=== PATIENT | female | born 1945 | race Caucasian/White ===

== ENCOUNTER 2019-05-31 13:14 | Emergency (ER) | payer MEDICARE ==
[~2019-05-31] VITALS: Ht 172.7 cm; Wt 48.1 kg
--- NOTE | 2019-05-31 13:23 | NUR ---
GIANA RA 877 FROM HOME, PER CAREGIVER, "NAUSEA/VOMITING, STARTED ON NEW MEDICATION YESTERDAY, DONEZEPIL- WHEN SHE TOOK IT, SHE FELT NAUSEAOUS/VOMITTED. SAME THING HAPPENED TODAY". TO ER BED 9, HOOKED TO BP CUFF AND POX, CHANGED TO HOSP GOWN, WARM BLANKET PROVIDED. PATIENT AOx1 , BREATHING EVEN AND UNLABORED. AWAITING MD MCCUALEY.
--- NOTE | 2019-05-31 13:32 | NUR ---
DR DYER AT BEDSIDE
[2019-05-31] MEDS ORDERED: QUET25TA PO (13:40)
[2019-05-31] MEDS ORDERED: DONE10TA44 PO (13:40)
[2019-05-31] MEDS ORDERED: ONDANSETRON HCL/PF 4 MG/2 ML VIAL ONE (13:42)
[2019-05-31 13:48] LABS: BASOPHILS % (AUTO) 0.2 % (0.0-2.0); EOSINOPHILS % (AUTO) 0.6 % (0.0-6.0); HEMATOCRIT 39 % (33-45); HEMOGLOBIN 12.6 g/dL (11.5-14.8); LYMPHOCYTES # (AUTO) 0.7 /CMM (0.8-4.8); LYMPHOCYTES % (AUTO) 10.7 % (20.0-44.0); MEAN CORPUSCULAR HGB CONC 33 g/dl (31.0-36.0); MEAN CORPUSCULAR VOLUME 93 fL (82-100); MONOCYTES # (AUTO) 0.5 /CMM (0.1-1.30); NEUTROPHILS # (AUTO) 5.1 /CMM (1.8-8.9); NEUTROPHILS % (AUTO) 80.5 % (43.0-81.0); PLATELET COUNT (AUTO) 124 /CMM (150-450); RED BLOOD CELL COUNT(AUTO) 4.14 MIL/uL (4.0-5.2); WHITE BLOOD COUNT (AUTO) 6.4 K/uL (4.3-11.0)
[2019-05-31 13:53] LABS: CREATININE 0.6 mg/dL (0.6-1.3); POTASSIUM 3.8 mmol/L (3.5-5.1)
[2019-05-31 13:59] LABS: ALBUMIN 3.7 g/dL (3.4-5.0); BILIRUBIN,DIRECT 0.1 mg/dL (0.0-0.2); BILIRUBIN,TOTAL 0.5 mg/dL (0.2-1.0); TOTAL PROTEIN, SERUM 7.1 g/dL (6.4-8.2)
[2019-05-31] MEDS ORDERED: IV NS 0.9% 1,000 ML BAG IV ONE (14:00)
[2019-05-31] MEDS ORDERED: ONDANSETRON HCL/PF 4 MG/2 ML VIAL IVP ONE (14:00)
[2019-05-31 14:15] LABS: APPEARANCE,URINE Clear (CLEAR); BILIRUBIN,URINE Negative (NEGATIVE); BLOOD, URINE Negative Ery/uL (NEGATIVE); COLOR,URINE Yellow (YELLOW); KETONES,URINE Negative (NEGATIVE); LEUKOCYTE ESTERASE ,URINE Negative (NEGATIVE); NITRITE, URINE Negative (NEGATIVE); PH,URINE 8.5 (5.0-8.0); PROTEIN,URINE Trace mg/dl (NEGATIVE); UGLUCOSE Negative (NEGATIVE)
[2019-05-31 14:44] LABS: BACTERIA,URINE Few /HPF (None Seen); RBC,URINE 0-2 /HPF (0-2); SQUAMOUS EPITHELIAL CELL,UR Few /HPF (None Seen); WBC,URINE 0-2 /HPF (0-3)
--- NOTE | 2019-05-31 15:09 | NUR ---
IV removed. Catheter intact and site benign. Pressure and 4x4 applied to site. No bleeding noted. Patient discharged to home in stable condition. Written and verbal after care instructions given to caregiver. Caregiver verbalizes understanding of instruction. Caregiver: Chetna Parra [phone]
[2019-05-31 15:11] VITALS: BP 141/76
== END 2019-05-31 15:12 | disposition home or self-care (01) ==
LOC: ER 13:16
DX: R11.2 Nausea with vomiting, unspecified (principal); E86.0 Dehydration; T44.1X5A Adverse effect of other parasympathomimetics [cholinergics], initial encounter; Z79.899 Other long term (current) drug therapy; Y92.89 Other specified places as the place of occurrence of the external cause
CPT/HCPCS: 36415; 80048; 80076; 81001; 83690; 85025; 93005; 96361; 96374; 99284; J2405; J7030; 81000-TC

== ENCOUNTER 2020-03-25 17:53 | Inpatient (IN) | payer MEDICARE ==
[~2020-03-25] VITALS: Ht 162.6 cm; Wt 56.7 kg
[~2020-03-25 17:53] MED LIST: DONE10TA44 PO; QUET25TA PO
--- NOTE | 2020-03-25 19:37 | NUR ---
PAGED DR. LAZCANO'S EXCHANGE.
--- NOTE | 2020-03-25 19:42 | NUR ---
PATIENT'S CORONAVIRUS SWAB SAMPLE COLLECTED AND SENT TO THE LAB.
--- NOTE | 2020-03-25 19:46 | NUR ---
PAGED [facility].
--- NOTE | 2020-03-25 20:00 | NUR ---
ASSUMED CARE FOR PATIENT AT THIS TIME. PT BIBRA FROM HOME S/O FALL. PER REPORT, PT WAS ATTEMPTING TO SIT ON BED AND FELL. DENIES HEAD INJURY/LOC. PT AWAKE, CONFUSED. VSS. RESPIRATIONS EVEN AND UNLABORED. NO ACUTE DISTRESS NOTED AT THIS TIME. PLACED ON MONITOR, WILL CONTINUE TO MONITOR
[2020-03-25 20:11] LABS: BASOPHILS # (AUTO) 0.1 /CMM (0.0-0.2); BASOPHILS % (AUTO) 0.5 % (0.0-2.0); EOSINOPHILS % (AUTO) 0.6 % (0.0-6.0); HEMATOCRIT 36 % (33-45); HEMOGLOBIN 11.5 g/dL (11.5-14.8); LYMPHOCYTES # (AUTO) 0.8 /CMM (0.8-4.8); LYMPHOCYTES % (AUTO) 7.1 % (20.0-44.0); MEAN CORPUSCULAR HGB CONC 32 g/dl (31.0-36.0); MEAN CORPUSCULAR VOLUME 94 fL (82-100); MONOCYTES # (AUTO) 0.9 /CMM (0.1-1.30); MONOCYTES % (AUTO) 7.9 % (2.0-12.0); NEUTROPHILS # (AUTO) 9.7 /CMM (1.8-8.9); NEUTROPHILS % (AUTO) 83.9 % (43.0-81.0); PLATELET COUNT (AUTO) 143 /CMM (150-450); RED BLOOD CELL COUNT(AUTO) 3.83 MIL/uL (4.0-5.2); WHITE BLOOD COUNT (AUTO) 11.5 K/uL (4.3-11.0)
[2020-03-25 20:21] LABS: CREATININE 0.8 mg/dL (0.6-1.3)
--- NOTE | 2020-03-25 21:24 | NUR ---
CALL FROM LAB, RAPID COVID NEGATIVE.
[2020-03-25] MEDS ORDERED: ZOLPIDEM TARTRATE 5 MG TABLET PO PRN (21:30)
[2020-03-25] MEDS ORDERED: MAGNESIUM HYDROXIDE 30 ML UDC PO PRN (21:30)
[2020-03-25] MEDS ORDERED: Z GUARD REMEDY 2 OZ OINT TP PRN (21:30)
[2020-03-25] MEDS ORDERED: HYDROCODONE/APAP 5/325MG TABLET PO PRN (21:30)
[2020-03-25] MEDS ORDERED: MAG HYDROX/AL HYDROX/SIMETH 30 ML UDC PO PRN (21:30)
[2020-03-25] MEDS ORDERED: MORPHINE SULFATE INJ 2 MG/ML DISP.SYRIN IV PRN (21:30)
[2020-03-25] MEDS ORDERED: ONDANSETRON HCL/PF 4 MG/2 ML VIAL IVP PRN (21:30)
[2020-03-25] MEDS ORDERED: ACETAMINOPHEN 325 MG TABLET PO PRN (21:30)
[2020-03-25] MEDS ORDERED: OLANZAPINE 10 MG VIAL IM ONE ×2 (21:56→22:00)
[2020-03-25] MEDS: IV D5/0.45 NACL 1,000 ML IV PRN (23:26)
--- NOTE | 2020-03-25 23:30 | NUR ---
18g piv started on lfa w/ good blood draw. and pt ws astarted on ivf hydration as ordered. will cont to monitor ,
[2020-03-25] MEDS ORDERED: QUETIAPINE FUMARATE 25 MG TABLET ONE (23:49)
[2020-03-25] MEDS ORDERED: DONEPEZIL 5 MG TABLET ONE (23:49)
[2020-03-25] MEDS: QUETIAPINE FUMARATE 25 MG TABLET PO SCH ×2 (23:59)
[2020-03-26] MEDS: DONEPEZIL 5 MG TABLET PO SCH
--- NOTE | 2020-03-26 00:02 | NUR ---
spoke to Shruti Goldsmith TANKER SERVICE ATTENDANT, regarding pt's diet. per Shruti, it's ok to administer the medications due.
[2020-03-26 03:43] LABS: BASOPHILS % (AUTO) 0.3 % (0.0-2.0); EOSINOPHILS % (AUTO) 0.1 % (0.0-6.0); HEMATOCRIT 38 % (33-45); HEMOGLOBIN 12.2 g/dL (11.5-14.8); LYMPHOCYTES # (AUTO) 0.8 /CMM (0.8-4.8); LYMPHOCYTES % (AUTO) 9.2 % (20.0-44.0); MEAN CORPUSCULAR HGB CONC 33 g/dl (31.0-36.0); MEAN CORPUSCULAR VOLUME 93 fL (82-100); MONOCYTES # (AUTO) 0.8 /CMM (0.1-1.30); MONOCYTES % (AUTO) 9.2 % (2.0-12.0); NEUTROPHILS # (AUTO) 6.7 /CMM (1.8-8.9); NEUTROPHILS % (AUTO) 81.2 % (43.0-81.0); PLATELET COUNT (AUTO) 143 /CMM (150-450); RED BLOOD CELL COUNT(AUTO) 4.04 MIL/uL (4.0-5.2); WHITE BLOOD COUNT (AUTO) 8.2 K/uL (4.3-11.0)
[2020-03-26 03:58] LABS: ALBUMIN 3.7 g/dL (3.4-5.0); BILIRUBIN,TOTAL 0.6 mg/dL (0.2-1.0); CALCIUM, SERUM 8.8 mg/dL (8.5-10.1); CREATININE 0.9 mg/dL (0.6-1.3); MAGNESIUM 2.1 mg/dL (1.8-2.4); PHOSPHORUS 4.3 mg/dL (2.5-4.9); POTASSIUM 4.1 mmol/L (3.5-5.1); TOTAL PROTEIN, SERUM 7.1 g/dL (6.4-8.2)
--- NOTE | 2020-03-26 07:36 | NUR ---
REPORT GIVEN TO ASHLYN EDMOND FOR LEÓN
--- NOTE | 2020-03-26 08:42 | NUR ---
PATIENT IN BED ASLEEP. EASILY AROUSABLE BY VOICE. HOOKED TO MONITOR. VSS. WILL CONTINUE TO MONITOR
--- NOTE | 2020-03-26 09:26 | NUR ---
BREAKFAST TRAY PROVIDED. TOLERATING PO WELL.
[2020-03-26 10:06] LABS: IRON, SERUM 56 ug/dl (50-175); TOTAL IRON BINDING CAPACITY 323 ug/dl (250-450)
--- NOTE | 2020-03-26 10:16 | NUR ---
EPISODE OF BOWEL MOVEMENT NOTED, SMELLY BROWN LOOSE STOOL NOTED. LARGE AMOUNT. CLEANED PATIENT. KEPT CLEAN AND DRY.
[2020-03-26 10:21] LABS: FERRITIN 83 ng/mL (8-388); THYROID STIMULATING HORMONE 1.819 uIU/mL (0.358-3.74)
--- NOTE | 2020-03-26 12:42 | NUR ---
LUNCH TRAY PROVIDED. TOLERATING PO WELL.
--- NOTE | 2020-03-26 13:42 | NUR ---
EPISODE OF BOWEL MOVEMENT NOTED, SMELLY BROWN LOOSE STOOL NOTED. LARGE AMOUNT. CLEANED PATIENT. KEPT CLEAN AND DRY.
--- NOTE | 2020-03-26 14:29 | NUR ---
Patient seen and examined by Dr. Lyles.
--- NOTE | 2020-03-26 16:15 | NUR ---
EPISODE OF BOWEL MOVEMENT NOTED, SMELLY BROWN LOOSE STOOL NOTED. LARGE AMOUNT. CLEANED PATIENT. KEPT CLEAN AND DRY.
--- NOTE | 2020-03-26 19:42 | NUR ---
PT RESTING COMFORTABLY IN BED. VITAL SIGNS STABLE. WILL CONTINUE TO MONITOR
[2020-03-26] MEDS: QUETIAPINE FUMARATE 25 MG TABLET PO SCH (22:03)
--- NOTE | 2020-03-27 04:06 | NUR ---
PT CLEANED, CHANGED, AND REPOSITIONED. RESTING COMFORTABLY IN BED. VITAL SIGNS STABLE. NO ACUTE DISTRESS NOTED AT THIS TIME. STILL ON MONITOR, WILL CONTINUE TO MONITOR
[2020-03-27] MEDS: IV D5/0.45 NACL 1,000 ML IV PRN (06:36)
[2020-03-27] MEDS ORDERED: BACITRACIN 50000 UNITS/VIAL ONE (07:13)
[2020-03-27] MEDS ORDERED: BUPIVACAINE 0.5 % PF 150 MG/30 ML VIAL ONE (07:13)
--- NOTE | 2020-03-27 07:43 | NUR ---
NARESH, SURGERY UPDATED WITH PT. AWAITING FOR CONSENT.
--- NOTE | 2020-03-27 08:30 | NUR ---
consent obtained from pts for surgery vinicio villa verified with kimberly wong via phone.
--- NOTE | 2020-03-27 09:45 | NUR ---
pt picked up by cindy wong for surgery with marco jones
--- NOTE | 2020-03-27 10:57 | NUR ---
pt will go to 327-2 after surgery
[2020-03-27] MEDS ORDERED: VANCOMYCIN 1 GM VIAL ONE (11:08)
[2020-03-27 11:40] VITALS: BP 118/81
--- NOTE | 2020-03-27 12:00 | NUR ---
RN NOTE Patient arrived A/ox1, confused, showing no signs of acute distress or SOB, saturating 100% on 3L NC. IV line in the left wrist #20g is clean and intact flushing well. Patient denies any pain at this time. Left hip surgical incision present. VS stable. Patient is shivering, oral temp 98.0, bear hugger in place to keep patient warm. Bed is in lowest position, side rail x2, in upright position, call light is within reach, fall safety and aspiration precautions enforced. Will continue with plan of care.
[2020-03-27] MEDS ORDERED: HYDROCODONE/APAP 10/325MG TABLET PO PRN (12:30)
[2020-03-27] MEDS ORDERED: MORPHINE SULFATE INJ 2 MG/ML DISP.SYRIN IV PRN (12:30)
--- NOTE | 2020-03-27 16:12 | NUR ---
Tele monitor ST 100s with PACs
[2020-03-27] MEDS: IV D5/0.45 NACL W/20 MEQ KCL 1L IV PRN ×2 (16:39)
[2020-03-27] MEDS: ENOXAPARIN SODIUM 40 MG/0.4 ML DISP.SYRIN SQ SCH (17:01)
[2020-03-27] MEDS: ANCEF 1 GM/50 ML D5W IV SCH ×2 (17:41)
--- NOTE | 2020-03-27 18:43 | NUR ---
RN CLOSING NOTE Patient is resting in bed, A/o x1, with periods of confusion, showing no signs of acute distress or SOB, saturating 100% on 3L NC. IV line in the left wrist #20g is clean and intact running D51/4 + potassium 20meq running @ 75mls/hr. Patient turned and repositioned, bed bath given. Surgical incision is clean and dry. Will endorse to plant operator/shift supervisor for LEÓN.
--- NOTE | 2020-03-27 19:30 | NUR ---
TONG SETTER OPENING NOTE Patient is resting in bed, awake, alert and oriented x1, with periods of confusion noted. Reorientation provided. No s/sx of acute respiratory distress or SOB, saturating 99% on 3L NC. IV line in the left wrist #20g is clean and intact running D51/4 + potassium 20meq running @ 75mls/hr. No manifestations of pain or discomfort at this time. Patient turned and repositioned, Surgical incision is clean and dry. Will continue to monitor.
[2020-03-27 20:00] VITALS: BP 148/90
[2020-03-27] MEDS: DONEPEZIL 5 MG TABLET PO SCH (21:29)
[2020-03-27] MEDS: QUETIAPINE FUMARATE 25 MG TABLET PO SCH (21:29)
[2020-03-27 23:00] VITALS: BP 117/60
[2020-03-28] MEDS: ANCEF 1 GM/50 ML D5W IV SCH ×4 (01:58→09:23)
[2020-03-28 06:50] LABS: BASOPHILS % (AUTO) 0.5 % (0.0-2.0); HEMATOCRIT 24 % (33-45); HEMOGLOBIN 7.9 g/dL (11.5-14.8); LYMPHOCYTES # (AUTO) 0.6 /CMM (0.8-4.8); LYMPHOCYTES % (AUTO) 6.6 % (20.0-44.0); MEAN CORPUSCULAR HGB CONC 33 g/dl (31.0-36.0); MEAN CORPUSCULAR VOLUME 95 fL (82-100); MONOCYTES # (AUTO) 1.2 /CMM (0.1-1.30); MONOCYTES % (AUTO) 13.1 % (2.0-12.0); NEUTROPHILS # (AUTO) 7.5 /CMM (1.8-8.9); NEUTROPHILS % (AUTO) 79.8 % (43.0-81.0); PLATELET COUNT (AUTO) 119 /CMM (150-450); RED BLOOD CELL COUNT(AUTO) 2.51 MIL/uL (4.0-5.2); WHITE BLOOD COUNT (AUTO) 9.4 K/uL (4.3-11.0)
--- NOTE | 2020-03-28 07:01 | NUR ---
RN CLOSING NOTE Patient is bed asleep, arouses easily. A/o x1-2, with periods of confusion, showing no signs of acute distress or SOB, saturating 100% on 3L NC. IV line in the left wrist #20g is clean and intact running D51/4 + potassium 20meq running @75mls/hr. Patient turned and repositioned. Surgical incision is clean and dry. Will endorse to day shift for LEÓN.
[2020-03-28 07:13] LABS: CALCIUM, SERUM 8.3 mg/dL (8.5-10.1); CREATININE 0.9 mg/dL (0.6-1.3); MAGNESIUM 2.6 mg/dL (1.8-2.4); PHOSPHORUS 3.6 mg/dL (2.5-4.9); POTASSIUM 4.2 mmol/L (3.5-5.1)
[2020-03-28] MEDS: IV D5/0.45 NACL W/20 MEQ KCL 1L IV PRN ×4 (07:22→22:49)
--- NOTE | 2020-03-28 07:30 | NUR ---
PT RECEIVED RESTING COMFORTABLY IN BED WITH EYES CLOSED. NO S/S OR C/O PAIN OR DISTRESS NOTED. SIDE RAILS UP X2, CALL LIGHT LEFT WITHIN REACH. WILL CONTINUE PLAN OF CARE.
[2020-03-28 08:00] VITALS: BP 112/84
[2020-03-28 10:00] VITALS: BP 112/84
[2020-03-28 12:00] VITALS: BP 149/74
[2020-03-28 16:00] VITALS: BP 150/89
[2020-03-28] MEDS: ENOXAPARIN SODIUM 40 MG/0.4 ML DISP.SYRIN SQ SCH (16:04)
--- NOTE | 2020-03-28 19:45 | NUR ---
RN OPENING NOTES RECEIVED PT IN BED. PT IS A/O X 1, PT IS CONFUSED AND BEHAVES INAPPROPRIATELY, MAKING ABNORMAL NOISES SECONDARY TO POSSIBLE PSYCH ISSUES. PT IS COOPERATIVE. PT IS ON 4L OF O2 VIA NASAL CANNULA. TOLERATING WELL SATURATION 95% NO RESP DISTRESS OR SOB NOTED BREATHING IS EVEN AND UNLABORED. SAFETY MEASURES IN PLACE, HOB ELEVATED TOLERATED. SIDE RAILS UP X2. BED LOCKED IN LOWEST POSITION CALL LIGHT WITHIN REACH WILL CONTINUE TO MONITOR
--- NOTE | 2020-03-28 21:12 | NUR ---
CHANGE OF SHIFT REPORT PT RESTING COMFORTABLY IN BED. NO S/S OR C/O PAIN OR DISTRESS NOTED. SIDE RAILS UP X2, CALL LIGHT LEFT WITHIN REACH. PT KEPT CLEAN, DRY, AND COMFORTABLE. NO SIGNIFICANT CHANGES SINCE PREVIOUS SHIFT. REPORT GIVEN TO SHU GOLDBERG.
[2020-03-28] MEDS: DONEPEZIL 5 MG TABLET PO SCH (22:36)
[2020-03-28] MEDS: QUETIAPINE FUMARATE 25 MG TABLET PO SCH (22:36)
--- NOTE | 2020-03-28 23:00 | NUR ---
PT IV SITE IS LEAKING, CATHETER REMOVED AND INTACT. NO S/S OF BLEEDING NOTED. NEW IV INSERTED LEFT FOREARM #20 PATENT GOOD BLOOD RETURN.
[2020-03-29] VITALS (7 sets, daily range): BP systolic 106–145; BP diastolic 46–95
[2020-03-29 07:02] LABS: BASOPHILS % (AUTO) 0.4 % (0.0-2.0); EOSINOPHILS % (AUTO) 0.1 % (0.0-6.0); HEMATOCRIT 22 % (33-45); HEMOGLOBIN 7.2 g/dL (11.5-14.8); LYMPHOCYTES # (AUTO) 0.6 /CMM (0.8-4.8); LYMPHOCYTES % (AUTO) 6.9 % (20.0-44.0); MEAN CORPUSCULAR HGB CONC 32 g/dl (31.0-36.0); MEAN CORPUSCULAR VOLUME 96 fL (82-100); MONOCYTES # (AUTO) 0.9 /CMM (0.1-1.30); MONOCYTES % (AUTO) 10.7 % (2.0-12.0); NEUTROPHILS # (AUTO) 7.2 /CMM (1.8-8.9); NEUTROPHILS % (AUTO) 81.9 % (43.0-81.0); PLATELET COUNT (AUTO) 108 /CMM (150-450); RED BLOOD CELL COUNT(AUTO) 2.31 MIL/uL (4.0-5.2); WHITE BLOOD COUNT (AUTO) 8.8 K/uL (4.3-11.0)
[2020-03-29 07:40] LABS: CALCIUM, SERUM 8.5 mg/dL (8.5-10.1); CREATININE 0.7 mg/dL (0.6-1.3); MAGNESIUM 2.2 mg/dL (1.8-2.4); PHOSPHORUS 2.6 mg/dL (2.5-4.9); POTASSIUM 4.2 mmol/L (3.5-5.1)
--- NOTE | 2020-03-29 08:10 | NUR ---
MS RN OPENING NOTES PATIENT IN BED, AWAKE, CONFUSED. PATIENT ON OXYGEN THERAPY AT 4 LMP VIA NASAL CANULA; BREATHING EVEN AND UNLABORED. NO PAIN COMPLAINT AT THIS TIME. SAFETY PRECAUTIONS IN PLACE; BED IN LOW POSITION AND LOCKED, RAILS UP X2, CALL LIGHT WITHIN REACH. WILL ENDORSE TO QUILL LAYER NURSE.
--- NOTE | 2020-03-29 08:31 | NUR ---
RN CLOSING NOTES NO SIGNIFICANT CHANGES, PT RESTED WELL THROUGHOUT THE NIGHT. PT IS CURRENTLY RECEIVING BREAKFAST WITH BEAUTY CULTURIST APPRENTICE AT BEDSIDE. STILL ON NASAL CANNULA TOLERATED ON 4L OF O2, PT SATURATING >96% NO SOB NOTED NO RESP DISTRESS NOTED. BREATHING IS EVEN AND UNLABORED. PT STILL ON IVF, NO S/S OF INFILTRATION NOTED AT THIS TIME. SAFETY MEASURES IN PLACE. HOB ELEVATED. SIDE RAILS UP X2. BED LOCKED IN LOWEST POSITION. CALL LIGHT WITHIN REACH. ENDORSED TO AM NURSE FOR CONTINUATION OF CARE.
[2020-03-29] MEDS: IV D5/0.45 NACL 1,000 ML IV PRN (14:27)
[2020-03-29] MEDS: ENOXAPARIN SODIUM 40 MG/0.4 ML DISP.SYRIN SQ SCH (16:33)
--- NOTE | 2020-03-29 16:33 | NUR ---
DIVING INSTRUCTOR NOTES PATIENT HAS LOW HGB OF 7.2; AWARE. 1700 LOVENOX NON-ADMINISTERED
--- NOTE | 2020-03-29 18:34 | NUR ---
MS RN NOTES PATIENT PULLED OUT HER IV LINE. REFUSES TO BE TOUCHED OR RE-INSERT A NEW LINE. AWARE.
--- NOTE | 2020-03-29 18:50 | NUR ---
MS RN CLOSING NOTES PATIENT REMAINS IN BED, AWAKE, CONFUSED. PATIENT ON OXYGEN THERAPY AT 4 LPM VIA NASAL CANULA; BREATHING EVEN AND UNLABORED. NO PAIN COMPLAINT THROUGHOUT SHIFT. PATIENT PULLED HER IV LINE AND REFUSES REINSERTION; MD AWARE. MARTE CATH IN PLACE WITH A DAILY OUTPUT OF 330 MLS. ALL NEEDS ATTENDED THROUGHOUT THE DAY. SAFETY PRECAUTIONS IN PLACE; BED IN LOW POSITION AND LOCKED, RAILS UP X2, CALL LIGHT WITHIN REACH. WILL ENDORSE TO DRUM FILLER NURSE.
--- NOTE | 2020-03-29 19:23 | NUR ---
MS RN OPENING NOTES RECEIVED PT INTERMITTENTLY SLEEPING IN BED. PT IS A/O X 1, CONFUSED AND BEHAVES INAPPROPRIATELY, MAKING ABNORMAL NOISES SECONDARY TO POSSIBLE PSYCH ISSUES. PT IS COOPERATIVE BUT REFUSES ADL CARE AT TIMES. PT IS ON 3-4L OF O2 VIA NASAL CANNULA. TOLERATING WELL SATURATION 94% NO RESP DISTRESS OR SOB NOTED BREATHING IS EVEN AND UNLABORED. SAFETY MEASURES IN PLACE, HOB ELEVATED TOLERATED. SIDE RAILS UP X2. BED LOCKED IN LOWEST POSITION. BED ALARM ON FOR SAFETY. CALL LIGHT WITHIN REACH WILL CONTINUE TO MONITOR
--- NOTE | 2020-03-29 20:23 | NUR ---
MS RN NOTE PATIENT DIES NOT HAVE IV ACCESS, PER AM RN REPORT, PATIENT REMOVED HER IV CATH & REFUSED TO HAVE REINSERTION IF CATH DONE. DR. SOLIS WAS MADE AWARE BY AM RN & PER , OKAY IF PATIENT REFUSES IV ACTH INSERTED. WILL CONTINUE TO MONITOR.
[2020-03-29] MEDS: QUETIAPINE FUMARATE 25 MG TABLET PO SCH (22:12)
[2020-03-29] MEDS: DONEPEZIL 5 MG TABLET PO SCH (22:12)
--- NOTE | 2020-03-30 07:43 | NUR ---
RN OPEN NOTES PATIENT IS A/O X 1 WITH NO SIGNS OF DISTRESS IN ROOM AIR. PER BOX SPRING MAKER, PATIENT REFUSES IV AND DR. SOLIS IS AWARE. NO COMPLAIN OF PAIN AT THIS TIME.MARTE CATHETER INTACT. SAFETY MEASURES ARE APPLIED, BED IS IN LOW POSITION SIDE RAILS UP X 2. CALL LIGHT WITHIN REACH. WILL CONTINUE TO MONITOR.
[2020-03-30 09:01] LABS: BASOPHILS % (AUTO) 0.2 % (0.0-2.0); EOSINOPHILS % (AUTO) 0.4 % (0.0-6.0); LYMPHOCYTES # (AUTO) 0.7 /CMM (0.8-4.8); LYMPHOCYTES % (AUTO) 10.1 % (20.0-44.0); MEAN CORPUSCULAR HGB CONC 33 g/dl (31.0-36.0); MEAN CORPUSCULAR VOLUME 93 fL (82-100); MONOCYTES # (AUTO) 0.8 /CMM (0.1-1.30); MONOCYTES % (AUTO) 11.1 % (2.0-12.0); NEUTROPHILS # (AUTO) 5.3 /CMM (1.8-8.9); NEUTROPHILS % (AUTO) 78.2 % (43.0-81.0); PLATELET COUNT (AUTO) 151 /CMM (150-450); RED BLOOD CELL COUNT(AUTO) 2.16 MIL/uL (4.0-5.2); WHITE BLOOD COUNT (AUTO) 6.8 K/uL (4.3-11.0)
[2020-03-30 09:41] LABS: HEMOGLOBIN 6.7 g/dL (11.5-14.8)
[2020-03-30 09:42] LABS: HEMATOCRIT 20 % (33-45)
[2020-03-30 10:06] LABS: ALBUMIN 2.4 g/dL (3.4-5.0); BILIRUBIN,TOTAL 0.7 mg/dL (0.2-1.0); CREATININE 0.7 mg/dL (0.6-1.3); PHOSPHORUS 2.7 mg/dL (2.5-4.9); POTASSIUM 3.8 mmol/L (3.5-5.1); TOTAL PROTEIN, SERUM 5.7 g/dL (6.4-8.2)
[2020-03-30 14:01] LABS: EOSINOPHILS % (MANUAL) 1 % (0-4); LYMPHOCYTES % (MANUAL) 11 % (16-48); MONOCYTES % (MANUAL) 9 % (0-11.0); NEUTROPHILS % (MANUAL) 79 (42-76)
[2020-03-30 15:49] VITALS: BP 114/60
--- NOTE | 2020-03-30 15:50 | NUR ---
BLOOD TRANSFUSION WAS VERIFIED WITH SECOND RN INITIAL VITAL SIGNS 114/60 P 71 TEMP 98 F SPO2 NASAL CANNULA 94%. STARTED BLOOD TRANSFUSION.
[2020-03-30 16:00] VITALS: BP 125/55
[2020-03-30 16:14] VITALS: BP 125/55
[2020-03-30] MEDS: ENOXAPARIN SODIUM 40 MG/0.4 ML DISP.SYRIN SQ SCH (16:35)
--- NOTE | 2020-03-30 16:36 | NUR ---
HELD LOVENOX PATIENT LOW HEMOGLOBIN 6.5 HCT 20. CURRENTLY ON BLOOD TRANSFUSION.
[2020-03-30 16:44] VITALS: BP 135/50
[2020-03-30 17:44] VITALS: BP 143/54
--- NOTE | 2020-03-30 17:54 | NUR ---
BLOOD TRANSFUSION ENDED, VITALS WITHIN NORMAL LIMIT, AFEBRILE. NO SIGNS OF DISTRESS.
--- NOTE | 2020-03-30 19:45 | NUR ---
MS RN OPENING NOTES RECEIVED PATIENT IN BED ALERT AND ORIENTED X 1 CONFUSED. BREATHING REGULAR AND UNLABORED ON OXYGEN AT 4L/MIN VIA NASAL CANNULA. RIGHT FOREARM G20 IV LINE INTACT AND PATENT, INFUSING WELL. NO S/S OF PAIN/DISCOMFORT NOTED AT THIS TIME. BED LOW AND LOCKED ON SEMI FOWLERS POSITION. CALL LIGHT IN REACH. WILL CONTINUE TO MONITOR.
[2020-03-30 20:00] VITALS: BP 115/62
--- NOTE | 2020-03-30 20:01 | NUR ---
RN CLOSE NOTES PATIENT IS A/O X 1 WITH NO SIGNS OF DISTRESS IN ROOM AIR. IV R FA #20G INTACT RUNNING D5 1/2 NS AT 75 ML/HR. NO SIGNS OF PAIN AT THIS TIME. MARTE CATHETER INTACT. PATIENT KEPT CLEAN AND DRY. ALL NEEDS, CARE, TREATMENT,AND MEDICATIONS WERE ADMINISTERED ANTICIPATED PER ORDER. SAFETY MEASURES ARE APPLIED, BED IS IN LOW POSITION SIDE RAILS UP X 2. CALL LIGHT WITHIN REACH WILL ENDORSE TO THE STREET LIGHT REPAIRER NURSE.
[2020-03-30] MEDS: QUETIAPINE FUMARATE 25 MG TABLET PO SCH (21:53)
[2020-03-30] MEDS: DONEPEZIL 5 MG TABLET PO SCH (21:53)
[2020-03-31] MEDS: IV D5/0.45 NACL 1,000 ML IV PRN ×2 (05:15→19:53)
--- NOTE | 2020-03-31 06:45 | NUR ---
MS RN CLOSING NOTES PATIENT IN BED, ALERT AND ORIENTED X 1. AFEBRILE WITH NO S/S OF DISTRESS OBSERVED. WILL ENDORSE TO MORNING SHIFT FOR CONTINUITY OF CARE.
[2020-03-31 06:57] LABS: ALBUMIN 2.3 g/dL (3.4-5.0); BILIRUBIN,TOTAL 1.1 mg/dL (0.2-1.0); CALCIUM, SERUM 8.2 mg/dL (8.5-10.1); CREATININE 0.6 mg/dL (0.6-1.3); POTASSIUM 3.3 mmol/L (3.5-5.1); TOTAL PROTEIN, SERUM 5.1 g/dL (6.4-8.2)
[2020-03-31 07:44] LABS: BASOPHILS % (AUTO) 0.2 % (0.0-2.0); EOSINOPHILS % (AUTO) 2.3 % (0.0-6.0); HEMATOCRIT 24 % (33-45); LYMPHOCYTES # (AUTO) 0.7 /CMM (0.8-4.8); LYMPHOCYTES % (AUTO) 10.6 % (20.0-44.0); MEAN CORPUSCULAR HGB CONC 33 g/dl (31.0-36.0); MEAN CORPUSCULAR VOLUME 95 fL (82-100); MONOCYTES # (AUTO) 0.6 /CMM (0.1-1.30); MONOCYTES % (AUTO) 10.4 % (2.0-12.0); NEUTROPHILS # (AUTO) 4.7 /CMM (1.8-8.9); NEUTROPHILS % (AUTO) 76.5 % (43.0-81.0); PLATELET COUNT (AUTO) 150 /CMM (150-450); RED BLOOD CELL COUNT(AUTO) 2.55 MIL/uL (4.0-5.2); WHITE BLOOD COUNT (AUTO) 6.1 K/uL (4.3-11.0)
--- NOTE | 2020-03-31 07:51 | NUR ---
MS RN OPENING NOTES PATIENT IN BED, AWAKE, CONFUSED. PATIENT ON OXYGEN THERAPY AT 2 LMP VIA NASAL CANULA; BREATHING EVEN AND UNLABORED. NO PAIN COMPLAINT AT THIS TIME. R HAND IV ACCESS G # 22PRESENT AND INTACT. SAFETY PRECAUTIONS IN PLACE; BED IN LOW POSITION AND LOCKED, RAILS UP X2, CALL LIGHT WITHIN REACH. WILL CONTINUE TO MONITOR PATIENT.
[2020-03-31 08:00] VITALS: BP 117/70
[2020-03-31] MEDS ORDERED: POTASSIUM CHLORIDE 20 MEQ TAB.PRT.SR PO SCH (10:30)
[2020-03-31 16:00] VITALS: BP 107/56
[2020-03-31] MEDS: ENOXAPARIN SODIUM 40 MG/0.4 ML DISP.SYRIN SQ SCH (16:22)
--- NOTE | 2020-03-31 16:22 | NUR ---
MS RN NOTES 1700 ENOXAPARIN NOT ADMINISTERED. HGB LOW 8.0 AND R/O POSSIBLE GI BLEED.
--- NOTE | 2020-03-31 18:53 | NUR ---
MS RN CLOSING NOTES PATIENT REMAINS IN BED, AWAKE, CONFUSED. PATIENT ON OXYGEN THERAPY AT 2 LMP VIA NASAL CANULA; BREATHING EVEN AND UNLABORED. NO PAIN COMPLAINT DURING THE DAY. R HAND IV ACCESS G # 22 PRESENT AND INTACT. ALL NEEDS ATTENDED THROUGHOUT THE DAY. PATIENT CLEAN AND DRY. SAFETY PRECAUTIONS IN PLACE; BED IN LOW POSITION AND LOCKED, RAILS UP X2, CALL LIGHT WITHIN REACH. WILL ENDORSE TO WEB PRODUCTION DESIGNER NURSE.
--- NOTE | 2020-03-31 19:45 | NUR ---
MSRN CONFUSED, REORIENTED FREQ DOES NOT SEEM TO FOLLOW. PRESENT IVF INFUSING WELL. REPOSITIONED. LEFT HIP INCISIONS CLEAN DRY, INTACT OPEN TO AIR. DENIES ANY PAIN. KEPT COMFORTABLE.
[2020-03-31 21:38] VITALS: BP 125/51
[2020-03-31] MEDS: QUETIAPINE FUMARATE 25 MG TABLET PO SCH (21:56)
[2020-03-31] MEDS: DONEPEZIL 5 MG TABLET PO SCH (21:57)
--- NOTE | 2020-04-01 06:00 | NUR ---
MSRN REMAINS AWAKE SLEPT ONLY FOR FEW HOURS. PRESENT IVF CONTINUED.
[2020-04-01 08:00] VITALS: BP 133/73
--- NOTE | 2020-04-01 08:00 | NUR ---
ms rn received on bed, awake, very confused,not in any form of distress, s/p left hip surgery w/ syaples on, clean and dry, put dressing at this time, no s/s of pain ,all needs attended.
--- NOTE | 2020-04-01 09:00 | NUR ---
rn breakfast served,tolerated well. all needs attended.
--- NOTE | 2020-04-01 12:00 | NUR ---
ms rn on bed, no distress noted,patient will be discharge to [facility].
[2020-04-01] MEDS: IV D5/0.45 NACL 1,000 ML IV PRN (13:29)
[2020-04-01] MEDS ORDERED: Hydrocodone/Apap 10/325MG PO (14:52)
--- NOTE | 2020-04-01 17:30 | NUR ---
ms rn patient transferred to [facility], report given to Katie wong,all needs attended.
== END 2020-04-01 18:03 | DRG 480 ==
LOC: ER 18:03 → TRANSITION 03-26 02:28 → TELE 03-27 11:08 → MED 03-29 17:41
PROVIDERS: ADMIT Nurse Practitioner Acute Care; ATTEND Nurse Practitioner Acute Care
PROC: 0QS706Z Reposition Left Upper Femur with Intramedullary Internal Fixation Device, Open Approach (ICD-10-PCS; principal; 2020-03-27)
PROC: 30233N1 Transfusion of Nonautologous Red Blood Cells into Peripheral Vein, Percutaneous Approach (ICD-10-PCS; 2020-03-30)
DX: S72.012A Unspecified intracapsular fracture of left femur, initial encounter for closed fracture (principal); G93.41 Metabolic encephalopathy; N17.9 Acute kidney failure, unspecified; D62 Acute posthemorrhagic anemia; F02.80 Dementia in other diseases classified elsewhere, unspecified severity, without behavioral disturbance, psychotic disturbance, mood disturbance, and anxiety; G30.9 Alzheimer's disease, unspecified; Z79.899 Other long term (current) drug therapy; W06.XXXA Fall from bed, initial encounter; Y92.129 Unspecified place in nursing home as the place of occurrence of the external cause; E11.9 Type 2 diabetes mellitus without complications; F20.9 Schizophrenia, unspecified; F41.9 Anxiety disorder, unspecified; D72.829 Elevated white blood cell count, unspecified; I70.0 Atherosclerosis of aorta; F29 Unspecified psychosis not due to a substance or known physiological condition; Z20.828 Contact with and (suspected) exposure to other viral communicable diseases; E87.6 Hypokalemia
CPT/HCPCS: 36415; 71045-TC; 73020; 73502; 80048-TC; 80053-TC; 80061-TC; 82728-TC; 83540-TC; 83735-TC; 84100-TC; 84439-TC; 84443-TC; 84484-TC; 85025-TC; 85027-TC; 85730-TC; 86850-TC; 87081-TC; 92526; 92611-TC; 93307-TC; 97110-TC; 97112-TC; 97530-TC; C9803; G0378; J0690; J1650; J2405; J3370; J3480; J3490; J7030; J7050; J7060; J7120; P9016-BL

== ENCOUNTER 2020-05-25 08:39 | Inpatient (IN) | payer MEDICARE ==
[~2020-05-25] VITALS: Ht 170.2 cm; Wt 44.5 kg
[2020-05-25] VITALS (35 sets, daily range): BP systolic 45–139; BP diastolic 26–111
[~2020-05-25 08:39] MED LIST changes: +ETOMIDATE 2 MG/ML VIAL ONE; +Hydrocodone/Apap 10/325MG PO; +SUCCINYLCHOLINE CHLORIDE 20 MG/ML VIAL ONE
--- NOTE | 2020-05-25 08:45 | NUR ---
bibra60, from snf, c/o SOB 65% on non-rebreather mask @ 15L,BS 300. Patient awake, non-verbal, responsive to stimuli. Noted with shallow breathing, pulse ox shows 65% on the monitor.
[2020-05-25] MEDS ORDERED: PROPOFOL 100 ML ONE (08:53)
--- NOTE | 2020-05-25 08:55 | NUR ---
IV LINE ESTABLISHED, BLOOD DRAWN AND SENT TO LAB.
[2020-05-25] MEDS ORDERED: ACET-868 PO (08:58)
[2020-05-25] MEDS ORDERED: MULT-24 PO (08:58)
[2020-05-25] MEDS ORDERED: HYDR-3980 PO (08:58)
[2020-05-25] MEDS ORDERED: BLOO-668 IN (08:58)
[2020-05-25] MEDS ORDERED: AMIN30LI2 PO (08:58)
[2020-05-25] MEDS ORDERED: MAGN400O6 PO (08:58)
[2020-05-25] MEDS ORDERED: SENN-261 PO (08:58)
[2020-05-25] MEDS ORDERED: BISA10SU11 RC (08:58)
[2020-05-25] MEDS ORDERED: ASCO-352 PO (08:58)
[2020-05-25] MEDS ORDERED: FERR325T28 PO (08:58)
[2020-05-25] MEDS ORDERED: NA P133E RC (08:58)
[2020-05-25 08:59] LABS: BASOPHILS # (AUTO) 0.1 /CMM (0.0-0.2); BASOPHILS % (AUTO) 0.5 % (0.0-2.0); HEMATOCRIT 43 % (33-45); HEMOGLOBIN 13.4 g/dL (11.5-14.8); LYMPHOCYTES % (AUTO) 12.1 % (20.0-44.0); MEAN CORPUSCULAR HGB CONC 31 g/dl (31.0-36.0); MEAN CORPUSCULAR VOLUME 93 fL (82-100); MONOCYTES # (AUTO) 0.7 /CMM (0.1-1.30); MONOCYTES % (AUTO) 4.3 % (2.0-12.0); NEUTROPHILS # (AUTO) 14.1 /CMM (1.8-8.9); NEUTROPHILS % (AUTO) 83.1 % (43.0-81.0); PLATELET COUNT (AUTO) 229 /CMM (150-450); RED BLOOD CELL COUNT(AUTO) 4.58 MIL/uL (4.0-5.2); WHITE BLOOD COUNT (AUTO) 16.9 K/uL (4.3-11.0)
--- NOTE | 2020-05-25 08:59 | NUR ---
PATIENT PREP FOR INTUBATION, DR. VERAS AT BEDSIDE, RECEIVED VERBAL ORDER TO GIVE ETOMIDATE 20MG IV GIVEN X1 FOLLOWED BY SUCC 100MG IV X1.
[2020-05-25] MEDS ORDERED: PIPERACILLIN /TAZOBACTAM 3.375 G in IV D5W 50 ML IV ONE (09:00)
[2020-05-25] MEDS ORDERED: IV NS 0.9% 1,000 ML BAG IV ONE (09:00)
[2020-05-25] MEDS ORDERED: PROPOFOL 100 ML IV PRN (09:00)
--- NOTE | 2020-05-25 09:00 | NUR ---
PATIENT INTUBATED, ET TUBE SIZE IS 7.5, WITH 22CM ON THE LIP. + COLOR CHANGE, BILATERAL CHEST RISE. OG TUBE INSERTED.
--- NOTE | 2020-05-25 09:10 | NUR ---
MARTE CATHETER FR 16 INSERTED VIA STERILE TECHNIQUE. NO URINE OUTPUT AT THIS TIME.
--- NOTE | 2020-05-25 09:11 | NUR ---
MOVE SHEET SUBMITTED AND CALLED FOR ICU BED.
[2020-05-25 09:21] LABS: CALCIUM, SERUM 9.4 mg/dL (8.5-10.1); CARBON DIOXIDE 24 mmol/L (21-32); CHLORIDE 105 mmol/L (98-107); GLUCOSE 288 mg/dL (74-106); POTASSIUM 3.3 mmol/L (3.5-5.1); SODIUM SERUM 144 mmol/L (136-145); UREA NITROGEN, BLOOD 15 mg/dL (7-18)
[2020-05-25] MEDS: VANCOMYCIN 1 GM in IV D5W 250 ML IV ONE ×2 (09:22→09:45)
[2020-05-25 09:29] LABS: ALANINE AMINOTRANSFERASE 40 U/L (12-78); ALBUMIN 3.3 g/dL (3.4-5.0); ALKALINE PHOSPHATASE 236 U/L (46-116); ASPARTATE AMINOTRANSFERASE 70 U/L (15-37); BILIRUBIN,DIRECT 0.3 mg/dL (0.0-0.2); BILIRUBIN,TOTAL 0.9 mg/dL (0.2-1.0); TOTAL PROTEIN, SERUM 7.2 g/dL (6.4-8.2)
[2020-05-25] MEDS ORDERED: SUCCINYLCHOLINE CHLORIDE 20 MG/ML VIAL IV ONE (09:30)
[2020-05-25] MEDS ORDERED: NOREPINEPHRINE 8 MG in IV NS 0.9% 242 ML IV PRN ×2 (10:00→14:30)
[2020-05-25 10:50] LABS: ABG BASE EXCESS -10.4 mmol/L; ABG OXYGEN SATURATION 73.1 % (92.0-98.5); ABG PCO2 50.8 mmHg (35.0-45.0); ABG PO2 48.9 mmHg (75.0-100.0); AaDO2 613.3 mmHg; COHb 0.1 % (0.5-1.5); MetHb 0.4 % (0.0-1.5); O2Hb 72.7 % (94.0-97.0); SITE, ABG Right Radial; VENT MODE, BG AC 16 550 100% +0
--- NOTE | 2020-05-25 10:52 | NUR ---
PATIENT RESTING IN BED. PROPOFOL AND NOREPI ARE TITRATED PER EFFECT.
--- NOTE | 2020-05-25 10:53 | NUR ---
[facility] CALLED GAMEMASTER PAGED.
--- NOTE | 2020-05-25 11:00 | NUR ---
PATIENT STILL FIGHTING THE VENT, PROPOFOL TURNED OFF AT THIS TIME D/T LOW BP. LEVOPHED TITRATED PER PROTOCOL. SOFT WRIST RESTRAINTS IN PLACED KEEPING THE PATIENT FROM PULLING OUT THE TUBE.
[2020-05-25] MEDS ORDERED: IV NS 0.9% 1,000 ML IV ONE ×3 (11:30→16:45)
--- NOTE | 2020-05-25 11:30 | NUR ---
BP CUFF MOVED TO LEFT THIGH.
--- NOTE | 2020-05-25 11:40 | NUR ---
IV NS 1L STARTED END TIME: 1240 (UNABLE TO SIGN FROM EMAR)
--- NOTE | 2020-05-25 11:52 | NUR ---
LAB CALLED LACTIC ACID 7.7
[2020-05-25] MEDS ORDERED: ACETAMINOPHEN 650 MG/20.3 ML UDC NG PRN (12:00)
[2020-05-25 12:13] LABS: BILIRUBIN,URINE NEGATIVE (NEGATIVE); COLOR,URINE YELLOW (YELLOW); LEUKOCYTE ESTERASE ,URINE NEGATIVE (NEGATIVE); NITRITE, URINE NEGATIVE (NEGATIVE); PH,URINE 5.5 (5.0-8.0); PROTEIN,URINE 30 mg/dl (NEGATIVE); UGLUCOSE 500 MG/DL mg/dL (NEGATIVE)
[2020-05-25 12:18] LABS: BACTERIA,URINE Rare /HPF (None Seen); RBC,URINE 0-2 /HPF (0-2); SQUAMOUS EPITHELIAL CELL,UR Rare /HPF (None Seen); WBC,URINE 0-2 /HPF (0-3)
--- NOTE | 2020-05-25 12:24 | NUR ---
levophed and propofol, titrate to effect.
[2020-05-25] MEDS ORDERED: POTASSIUM CHLORIDE 20 MEQ POWDER PACKET NG ONE (13:00)
[2020-05-25] MEDS ORDERED: DEXTROSE 50%-WATER 50 ML DISP.SYRIN IV PRN (13:00)
[2020-05-25] MEDS ORDERED: POTASSIUM CL. PREMIX PERIPHER. 50 ML IV ONE (13:00)
[2020-05-25] MEDS ORDERED: SODIUM BICARBONATE SYR 50 MEQ/50 ML DISP.SYRIN IV ONE ×2 (13:00→16:30)
--- NOTE | 2020-05-25 14:03 | NUR ---
Report given to ASHLYN Walsh (icu).
--- NOTE | 2020-05-25 14:32 | NUR ---
Patient transferred to room 261 via acls protocol. No distress noted. Needs attended. Endorsed to Jillian GOLDBERG. Patient was seen and evaluated by Dr. Zamorano prior to transfer to ICU.
[2020-05-25] MEDS ORDERED: DIGOXIN INJ 0.5 MG/2 ML AMPUL IV ONE ×2 (15:00→18:30)
[2020-05-25 15:48] LABS: ABG BASE EXCESS -13.5 mmol/L; ABG OXYGEN SATURATION 61.7 % (92.0-98.5); ABG PCO2 55.2 mmHg (35.0-45.0); ABG PH 7.093 (7.350-7.450); ABG PO2 40.8 mmHg (75.0-100.0); COHb 0.5 % (0.5-1.5); MetHb 0.1 % (0.0-1.5); O2Hb 61.3 % (94.0-97.0); PEEP,BG 5 cm H2O; SITE, ABG Right Brachial; VT, ABG 550 mL
[2020-05-25] MEDS: PROPOFOL 100 ML IV PRN (15:51)
[2020-05-25] MEDS ORDERED: IV NS 0.9% 500 ML IV ONE (16:30)
[2020-05-25] MEDS: ENOXAPARIN SODIUM 30 MG/0.3 ML DISP.SYRIN SQ SCH (16:32)
[2020-05-25] MEDS ORDERED: VASOPRESSIN INJ 40 UNIT in IV NS 0.9% 38 ML IV PRN (17:30)
--- NOTE | 2020-05-25 17:49 | NUR ---
Non admin Klor Con. Was given in ER already
[2020-05-25] MEDS ORDERED: MEROPENEM 1 G in IV NS 0.9% 100 ML IV ONE (18:00)
[2020-05-25] MEDS: PHENYLEPHRINE 50 MG in IV NS 0.9% 245 ML IV PRN ×2 (18:01→21:23)
[2020-05-25] MEDS: BLOOD SUGAR DIAGNOSTIC 1 EACH STRIP IN SCH (18:09)
[2020-05-25] MEDS: INSULIN REGULAR, HUMAN 100 UNIT/ML 3 ML VIAL SQ PRN (18:10)
[2020-05-25] MEDS: NOREPINEPHRINE 32 MG in IV NS 0.9% 218 ML IV PRN (19:06)
[2020-05-25] MEDS: Sodium Bicarbonate 150 MEQ in IV D5W 1,000 ML IV SCH (19:06)
--- NOTE | 2020-05-25 19:45 | NUR ---
RN OPENING NOTES RECEIVED PT IN BED. NON VERBAL, PT IS ABLE TO OPEN EYES. ORALLY INTUBATED. .08/24 AT LIP. PT VENT SETTINGS AC 28 TV 550 FIO2 100% PEEP OF 5. PT O2 SATURATION IS 69-70. BASELINE TO PT, DOOR FRAMER AWARE. PT IS PCR PENDING FOR COVID. R/O PRECAUTIONS IN PLACE. ON AUTOMATION MECHANIC PT HAS UNCONTROLLED AFIB, BASELINE TO PT HR AT THIS TIME IS 105-120S. CHARGE NURSE MADE AWARE OF PT CONDITION. WILL CONT TO CLOSELY MONITOR. PT HAS MARTE CATH, DRAINING VIA GRAVITY. PT HAS SUBCLAVIAN TLC PICC AND LEFT FA AND RIGHT HAND IV, ALL FLUSHED ASEPTICALLY. PT IS ON NA BICARB D5W IVF @75ML/HR. SUZETTE @ 3MCG/KG/HR, LEVO @ 0.4 MCG/KG/HR AND DIPRIVAN AT 10MCG/KG/HR. PT HAS SOFT JOSE ALEJANDRO WRIST RESTRAINTS ON. SKIN CHECKED CIRCULATION CHECKED. SAFETY MEASURES IN PLACE. SIDE RAILS UP X2, BED LOCKED IN LOWEST POSITION WITH BED ALARM ON. PT UNABLE TO USE CALL LIGHT DUE TO COGNITIVE STATUS. WILL CONT TO CLOSELY MONITOR.
--- NOTE | 2020-05-25 20:00 | NUR ---
CHARGE SPOKE WITH , UPDATED CODE STATUS FOR PT IS DNR. WILL CONT TO MONITOR.
[2020-05-25] MEDS: VANCOMYCIN 500 MG in IV D5W 100 ML IV SCH (21:16)
[2020-05-26] VITALS (95 sets, daily range): BP systolic 87–138; BP diastolic 22–93
[2020-05-26] MEDS: BLOOD SUGAR DIAGNOSTIC 1 EACH STRIP IN SCH ×5 (00:36→23:43)
[2020-05-26] MEDS: PHENYLEPHRINE 50 MG in IV NS 0.9% 245 ML IV PRN ×5 (00:40→17:36)
--- NOTE | 2020-05-26 02:11 | NUR ---
NO CHANGES IN PT CONDITION, STILL O2 SAT 71%, HR IS STILL AFIB 98-100S. PT IS RESPONSIVE TO PRESSORS. WILL TITRATE TO PROTOCOL. WILL CONT TO CLOSELY MONITOR.
[2020-05-26] MEDS ORDERED: PHENYLEPHRINE 10 MG/ML VIAL ONE (03:28)
--- NOTE | 2020-05-26 03:34 | NUR ---
BED BATH DONE, 1 SMALL BM NOTED.
[2020-05-26] MEDS: PROPOFOL 100 ML IV PRN ×4 (03:50→22:53)
[2020-05-26 04:38] LABS: BASOPHILS % (AUTO) 0.2 % (0.0-2.0); HEMATOCRIT 36 % (33-45); HEMOGLOBIN 11.6 g/dL (11.5-14.8); LYMPHOCYTES # (AUTO) 0.5 /CMM (0.8-4.8); LYMPHOCYTES % (AUTO) 3.6 % (20.0-44.0); MEAN CORPUSCULAR HGB CONC 32 g/dl (31.0-36.0); MEAN CORPUSCULAR VOLUME 92 fL (82-100); MONOCYTES # (AUTO) 0.4 /CMM (0.1-1.30); MONOCYTES % (AUTO) 2.5 % (2.0-12.0); NEUTROPHILS % (AUTO) 93.7 % (43.0-81.0); PLATELET COUNT (AUTO) 103 /CMM (150-450); WHITE BLOOD COUNT (AUTO) 14.9 K/uL (4.3-11.0)
[2020-05-26 04:52] LABS: ALANINE AMINOTRANSFERASE 1357 U/L (12-78); ALBUMIN 2.1 g/dL (3.4-5.0); ALKALINE PHOSPHATASE 202 U/L (46-116); ASPARTATE AMINOTRANSFERASE 1667 U/L (15-37); BILIRUBIN,TOTAL 0.8 mg/dL (0.2-1.0); CALCIUM, SERUM 8.2 mg/dL (8.5-10.1); CARBON DIOXIDE 19 mmol/L (21-32); CHLORIDE 109 mmol/L (98-107); CREATININE 1.8 mg/dL (0.6-1.3); GLUCOSE 143 mg/dL (74-106); MAGNESIUM 1.3 mg/dL (1.8-2.4); PHOSPHORUS 4.8 mg/dL (2.5-4.9); POTASSIUM 3.3 mmol/L (3.5-5.1); SODIUM SERUM 143 mmol/L (136-145); TOTAL PROTEIN, SERUM 4.9 g/dL (6.4-8.2); UREA NITROGEN, BLOOD 23 mg/dL (7-18)
[2020-05-26] MEDS: MEROPENEM 1 G in IV NS 0.9% 100 ML IV SCH ×2 (05:00→17:04)
[2020-05-26] MEDS: INSULIN REGULAR, HUMAN 100 UNIT/ML 3 ML VIAL SQ PRN ×3 (05:59→23:48)
[2020-05-26 06:16] LABS: BAND % (MANUAL) 52 % (0.0-5.0); LYMPHOCYTES % (MANUAL) 3 % (16-48); METAMYELOCYTES % 2 % (0-0); MONOCYTES % (MANUAL) 3 % (0-11.0); NEUTROPHILS % (MANUAL) 40 (42-76)
[2020-05-26] MEDS: PANTOPRAZOLE 40 MG/PACK PACK NG SCH (06:18)
--- NOTE | 2020-05-26 06:45 | NUR ---
RN CLOSING NOTES NO SIGNIFICANT CHANGE IN PT CONDITION, PT STILL ON SAME VENT SETTINGS. O2 SATURATION IS AT 72% AT THIS TIME. ON CARDIAC MONITORING PT HR IS 94 AT THIS TIME. LEFT FOREARM IV SITE REMOVED. APPLIED GAUZE AND PRESSURE BANDAGE. PT STILL ON IVF NA BICARB D5W @75ML/HR, ON SUZETTE AT 3 MCG, LEVOPHED AT 0.6MCG, AND DIPRIVAN @25MCG. PT HAD 250CC OF BLACK GASTRIC CONTENTS. CHARGE NURSE MADE AWARE. WILL ENDORSE TO AM NURSE. ONLY 20CC OF URINE OUTPUT. SAFETY MEASURES IN PLACE. HOB ELEVATED. SIDE RAILS UP X2. BED LOCKED IN LOWEST POSITION WITH BED ALARM ON. SOFT JOSE ALEJANDRO WRIST RESTRAINTS STILL ON. WILL ENDORSE TO DAY SHIFT NURSE FOR CONTINUATION OF CARE.
[2020-05-26] MEDS: Sodium Bicarbonate 150 MEQ in IV D5W 1,000 ML IV SCH (06:52)
--- NOTE | 2020-05-26 07:30 | NUR ---
RN OPENING NOTE PATIENT IS PRESENT IN BED, SEDATED ON PROPOFOL, OPENS EYES, WITHDRAWS FROM PAIN, TOLERATING VENT SETTINGS WELL,UNCONTROLLED A-FIB ON TELE-MONITOR, HR WITHIN 98-112. OGT PRESENT IN PLACE , CLUMPED, NPO STATUS NOTE, MARTE CATH IN PLACE, NOTED MINIMAL AMOUNT OF URINE ,PICC LINE (TLC) ON L SUBCLAVIAN PRESENT , PATENT, FLUSHED, INTACT, TOLERATING DRIPS WELL, VS WNL, SAFETY MEASURES IN PLACE, CALL LIGHT IN REACH, HOB ELEVATED, BED IN LOWEST POSITION, LOCKED, WILL CONT TO MONITOR
[2020-05-26] MEDS: ENOXAPARIN SODIUM 30 MG/0.3 ML DISP.SYRIN SQ SCH (08:44)
--- NOTE | 2020-05-26 08:45 | NUR ---
RN NOTE HOLD LOVENOX PER DR ALVARENGA ORDER FOR TODAY
[2020-05-26 09:06] LABS: ABG BASE EXCESS -5.7 mmol/L; ABG OXYGEN SATURATION 99.2 % (92.0-98.5); ABG PCO2 28.8 mmHg (35.0-45.0); ABG PH 7.407 (7.350-7.450); ABG PO2 215.3 mmHg (75.0-100.0); AaDO2 468.9 mmHg; COHb 0.3 % (0.5-1.5); MetHb 0.1 % (0.0-1.5); O2Hb 98.8 % (94.0-97.0); SITE, ABG Right Radial; VENT MODE, BG AC 28 550 100%+5
[2020-05-26] MEDS: VANCOMYCIN 500 MG in IV D5W 100 ML IV SCH ×3 (09:13→21:57)
--- NOTE | 2020-05-26 09:18 | NUR ---
vent changes below made per dr. rodrigues: AC 22 VT 500 ML FIO2 50% PEEP +5 RN AWARE ON VENT CHANGES MADE. Addendum: 05/26/20 at 0919 by LOBITO LARA RT Amended: Links added.
--- NOTE | 2020-05-26 09:30 | NUR ---
RN NOTE NO SEDATION VACATION, DUE PATIENT'S RR AND BP UNSTABLE
[2020-05-26] MEDS: POTASSIUM CL. PREMIX PERIPHER. 50 ML IV SCH ×2 (09:33→10:41)
[2020-05-26] MEDS ORDERED: FUROSEMIDE 100 MG/10 ML VIAL IV ONE (10:30)
[2020-05-26] MEDS: Magnesium 1GM/D5W 100ML PREMIX 100 ML IV SCH ×2 (10:40→11:38)
[2020-05-26] MEDS: HYDROCORTISONE SOD SUCCINATE 100 MG/2 ML VIAL IV SCH ×3 (11:09→21:31)
[2020-05-26] MEDS: NOREPINEPHRINE 32 MG in IV NS 0.9% 218 ML IV PRN (12:33)
[2020-05-26] MEDS: Potassium Chloride 20 MEQ in IV D5/ 0.9% NACL 1,000 ML IV PRN (17:52)
--- NOTE | 2020-05-26 18:35 | NUR ---
RN CLOSING NOTES PATIENT RESTING COMFORTABLY IN BED, SEDATED, RESPIRATIONS 22, UNLABORED AND EVEN, TOLERATING VENT SETTINGS AND DRIPS WELL, CLEANED AND REPOSITIONED, CLEANED, DVT PUMPS APPLIED, MEDICATIONS GIVEN, WILL ENDORSE TO PM SHIFT RN FOR ZORA
[2020-05-27] VITALS (74 sets, daily range): BP systolic 96–123; BP diastolic 44–69
[2020-05-27] MEDS: PHENYLEPHRINE 50 MG in IV NS 0.9% 245 ML IV PRN ×3 (00:09→20:22)
[2020-05-27] MEDS: Potassium Chloride 20 MEQ in IV D5/ 0.9% NACL 1,000 ML IV PRN (03:18)
[2020-05-27] MEDS: PROPOFOL 100 ML IV PRN ×3 (05:10→19:00)
[2020-05-27 05:12] LABS: CALCIUM, SERUM 8.5 mg/dL (8.5-10.1); CARBON DIOXIDE 21 mmol/L (21-32); CHLORIDE 111 mmol/L (98-107); CREATININE 2.1 mg/dL (0.6-1.3); GLUCOSE 219 mg/dL (74-106); MAGNESIUM 1.9 mg/dL (1.8-2.4); SODIUM SERUM 146 mmol/L (136-145); UREA NITROGEN, BLOOD 31 mg/dL (7-18)
[2020-05-27] MEDS: BLOOD SUGAR DIAGNOSTIC 1 EACH STRIP IN SCH ×4 (05:51→23:42)
[2020-05-27] MEDS: INSULIN REGULAR, HUMAN 100 UNIT/ML 3 ML VIAL SQ PRN (05:52)
[2020-05-27] MEDS: MEROPENEM 1 G in IV NS 0.9% 100 ML IV SCH ×2 (05:53→17:51)
[2020-05-27] MEDS: HYDROCORTISONE SOD SUCCINATE 100 MG/2 ML VIAL IV SCH (05:53)
--- NOTE | 2020-05-27 06:00 | NUR ---
NO SIGNIFICANT CHANGES IN PATIENT'S CONDITION. VENT SETTING UNCHANGED AND WELL TOLERATED. LEVO TITRATED OFF OVERNIGHT. ALL OTHER DRIPS UNCHANGED. PATIENT BATHED AND WAS REPOSITIONED Q2H OVERNIGHT. DISCOVERED SMALL NON-BLANCHABLE RED AREA ON SACRUM. MEPILEX IN PLACE. SIDE RAILS UP X2, BED IN LOW POSITION AND LOCKED WITH ALARMS ON. BILATERAL SOFT WRIST RESTRAINTS REMAIN IN PLACE. WILL ENDORSE TO DAY SHIFT NURSE FOR CONTINUATION OF CARE.
[2020-05-27] MEDS: PANTOPRAZOLE 40 MG/PACK PACK NG SCH (06:38)
[2020-05-27 07:51] LABS: ABG BASE EXCESS -4.8 mmol/L; ABG OXYGEN SATURATION 97.1 % (92.0-98.5); ABG PCO2 35.6 mmHg (35.0-45.0); ABG PH 7.366 (7.350-7.450); ABG PO2 98.1 mmHg (75.0-100.0); AaDO2 218.4 mmHg; COHb 0.6 % (0.5-1.5); MetHb 0.1 % (0.0-1.5); O2Hb 96.4 % (94.0-97.0); SITE, ABG Right Brachial
--- NOTE | 2020-05-27 08:57 | NUR ---
WOUND CARE CONSULT: REVIEWED CHART, NURSING DOCUMENTATION AND PHOTO WHICH INDICATES AREA OF NONBLANCHABLE REDNESS TO SACRAL AREA, PRESENT ON ADMISSION. RECOMMENDATIONS MADE FOR SKIN PROTECTION. DISCUSSED WITH NURSING STAFF. PT IS THIN AND BONY. FIRST STEP LOW AIRLOSS MATTRESS ORDERED. MD IN AGREEMENT WITH PLAN OF CARE. CURRENT EVELIN SCORE IS 11.
[2020-05-27] MEDS: VANCOMYCIN 500 MG in IV D5W 100 ML IV SCH (10:06)
[2020-05-27] MEDS: ENOXAPARIN SODIUM 30 MG/0.3 ML DISP.SYRIN SQ SCH (10:28)
[2020-05-27] MEDS: Z GUARD REMEDY 2 OZ OINT TP SCH (18:39)
[2020-05-27] MEDS: IV NS 0.9% 1,000 ML IV PRN (20:23)
[2020-05-27] MEDS: DOXYCYCLINE 100 MG in IV D5W 100 ML IV SCH (21:50)
[2020-05-28] VITALS (88 sets, daily range): BP systolic 94–137; BP diastolic 47–83
[2020-05-28] MEDS: INSULIN REGULAR, HUMAN 100 UNIT/ML 3 ML VIAL SQ PRN (00:02)
[2020-05-28] MEDS: PROPOFOL 100 ML IV PRN ×2 (00:22→06:50)
[2020-05-28 04:38] LABS: BASOPHILS % (AUTO) 0.1 % (0.0-2.0); HEMATOCRIT 30 % (33-45); HEMOGLOBIN 9.9 g/dL (11.5-14.8); LYMPHOCYTES # (AUTO) 0.3 /CMM (0.8-4.8); LYMPHOCYTES % (AUTO) 1.9 % (20.0-44.0); MEAN CORPUSCULAR HGB CONC 33 g/dl (31.0-36.0); MEAN CORPUSCULAR VOLUME 90 fL (82-100); MONOCYTES # (AUTO) 0.4 /CMM (0.1-1.30); MONOCYTES % (AUTO) 2.9 % (2.0-12.0); NEUTROPHILS # (AUTO) 13.8 /CMM (1.8-8.9); NEUTROPHILS % (AUTO) 95.1 % (43.0-81.0); PLATELET COUNT (AUTO) 62 /CMM (150-450); RED BLOOD CELL COUNT(AUTO) 3.35 MIL/uL (4.0-5.2); WHITE BLOOD COUNT (AUTO) 14.5 K/uL (4.3-11.0)
[2020-05-28 04:47] LABS: CALCIUM, SERUM 8.3 mg/dL (8.5-10.1); CARBON DIOXIDE 23 mmol/L (21-32); CHLORIDE 112 mmol/L (98-107); CREATININE 1.7 mg/dL (0.6-1.3); GLUCOSE 95 mg/dL (74-106); POTASSIUM 3.2 mmol/L (3.5-5.1); SODIUM SERUM 147 mmol/L (136-145); UREA NITROGEN, BLOOD 33 mg/dL (7-18)
[2020-05-28] MEDS: PHENYLEPHRINE 50 MG in IV NS 0.9% 245 ML IV PRN (04:49)
[2020-05-28] MEDS: IV NS 0.9% 1,000 ML IV PRN (04:49)
[2020-05-28] MEDS: MEROPENEM 1 G in IV NS 0.9% 100 ML IV SCH ×2 (05:34→17:12)
[2020-05-28 05:39] LABS: BAND % (MANUAL) 24 % (0.0-5.0); LYMPHOCYTES % (MANUAL) 3 % (16-48); MONOCYTES % (MANUAL) 1 % (0-11.0); NEUTROPHILS % (MANUAL) 72 (42-76)
[2020-05-28] MEDS: BLOOD SUGAR DIAGNOSTIC 1 EACH STRIP IN SCH ×4 (06:14→23:04)
[2020-05-28] MEDS: PANTOPRAZOLE 40 MG/PACK PACK NG SCH ×2 (06:15→10:28)
[2020-05-28] MEDS ORDERED: POTASSIUM CHLORIDE 10 MEQ/50 ML PREMIXED IVPB FOR PERIPHERAL LINE IV ONE (06:30)
--- NOTE | 2020-05-28 07:15 | NUR ---
no significant changes in patient condition. able to titrate neosynephrine down to 1.8 mcg/kg/min and diprivan down to 25 mcg/kg/min overnight. patient was repositioned q2h, bath was given. bed in low position with guard rails up and alarms are in place. Addendum: 05/28/20 at 0722 by DINA NAVAS RN Jalil AGUSTIN notified of drop in platelets from 103 to 62. Also made aware of K 3.2 and received telephone orders for replacement. See eMAR. Will endorse to dayshift.
[2020-05-28] MEDS: POTASSIUM CL. PREMIX PERIPHER. 50 ML IV SCH ×2 (07:30→08:30)
[2020-05-28] MEDS: ENOXAPARIN SODIUM 30 MG/0.3 ML DISP.SYRIN SQ SCH (09:00)
[2020-05-28 09:28] LABS: ABG PCO2 33.4 mmHg (35.0-45.0); ABG PH 7.446 (7.350-7.450); ABG PO2 83.7 mmHg (75.0-100.0); AaDO2 163.1 mmHg; COHb 0.4 % (0.5-1.5); MetHb 0.3 % (0.0-1.5); O2Hb 95.3 % (94.0-97.0); SITE, ABG Right Brachial; VENT MODE, BG SIMV 4 PS 15 +5 40%
[2020-05-28] MEDS: FERROUS SULFATE (325 MG) 325 MG/TAB TABLET PO SCH (10:28)
[2020-05-28] MEDS: ASCORBIC ACID 500 MG TABLET PO SCH (10:28)
[2020-05-28] MEDS: MULTIVITAMINS,THERAGRAN 1 UDTAB TABLET PO SCH (10:28)
[2020-05-28] MEDS: Z GUARD REMEDY 2 OZ OINT TP PRN (10:29)
[2020-05-28] MEDS: Z GUARD REMEDY 2 OZ OINT TP SCH (10:30)
[2020-05-28] MEDS: DOXYCYCLINE 100 MG in IV D5W 100 ML IV SCH ×2 (10:41→20:55)
[2020-05-28] MEDS: PROSOURCE / PROSTAT (PYXIS) 30 ML UDC PO SCH (10:41)
[2020-05-28] MEDS ORDERED: POTASSIUM CL. PREMIX PERIPHER. 50 ML IV SCH (11:00)
--- NOTE | 2020-05-28 20:21 | NUR ---
ASSUMED CARE OF PATIENT. SEDATED ON PROPOFOL 20MCG/KG/MIN AND SUZETTE DOWN TO 1.5 MCG/KG/MIN. PATIENT WITHDRAWS TO PAIN. TOLERATING VENT SETTINGS. ON DAYSHIFT VENT MODE CHANGED TO SIMV AND PATIENT APPEARS TO BE TOLERATING. SINUS ARRHYTHMIA WITH PVCs AND ARTIFICAT NOTED ON TELEMETRY. SAFETY MESAURES IN PLACE: HOB ELEVATED, BED LOCKED AND IN LOWEST POSITION. WILL CONTINUE TO MONITOR.
[2020-05-28] MEDS: DONEPEZIL 5 MG TABLET PO SCH (23:04)
[2020-05-29] VITALS (89 sets, daily range): BP systolic 88–149; BP diastolic 53–106
[2020-05-29 04:28] LABS: CALCIUM, SERUM 7.9 mg/dL (8.5-10.1); CARBON DIOXIDE 23 mmol/L (21-32); CHLORIDE 114 mmol/L (98-107); CREATININE 1.5 mg/dL (0.6-1.3); GLUCOSE 104 mg/dL (74-106); SODIUM SERUM 150 mmol/L (136-145); UREA NITROGEN, BLOOD 36 mg/dL (7-18)
[2020-05-29 04:33] LABS: POTASSIUM 2.8 mmol/L (3.5-5.1)
[2020-05-29] MEDS: PROPOFOL 100 ML IV PRN (04:56)
[2020-05-29 04:57] LABS: BASOPHILS % (AUTO) 0.1 % (0.0-2.0); EOSINOPHILS % (AUTO) 0.1 % (0.0-6.0); HEMATOCRIT 34 % (33-45); HEMOGLOBIN 10.9 g/dL (11.5-14.8); LYMPHOCYTES # (AUTO) 0.3 /CMM (0.8-4.8); LYMPHOCYTES % (AUTO) 2.4 % (20.0-44.0); MEAN CORPUSCULAR HGB CONC 32 g/dl (31.0-36.0); MEAN CORPUSCULAR VOLUME 91 fL (82-100); MONOCYTES # (AUTO) 0.8 /CMM (0.1-1.30); MONOCYTES % (AUTO) 6.8 % (2.0-12.0); NEUTROPHILS # (AUTO) 10.2 /CMM (1.8-8.9); NEUTROPHILS % (AUTO) 90.6 % (43.0-81.0); RED BLOOD CELL COUNT(AUTO) 3.71 MIL/uL (4.0-5.2); WHITE BLOOD COUNT (AUTO) 11.3 K/uL (4.3-11.0)
[2020-05-29 05:05] LABS: PLATELET COUNT (AUTO) 40 /CMM (150-450)
[2020-05-29] MEDS: PHENYLEPHRINE 50 MG in IV NS 0.9% 245 ML IV PRN ×2 (05:13→17:54)
[2020-05-29] MEDS ORDERED: POTASSIUM CHLORIDE 10 MEQ TABLET.SA PO ONE (05:30)
[2020-05-29] MEDS ORDERED: POTASSIUM CHLORIDE 20 MEQ POWDER PACKET GT ONE (05:30)
[2020-05-29] MEDS: IV NS 0.9% 1,000 ML IV PRN (05:34)
[2020-05-29] MEDS: MEROPENEM 1 G in IV NS 0.9% 100 ML IV SCH ×2 (05:47→17:52)
[2020-05-29] MEDS: BLOOD SUGAR DIAGNOSTIC 1 EACH STRIP IN SCH ×4 (05:58→23:01)
--- NOTE | 2020-05-29 06:00 | NUR ---
patient tolerated ventilator settings overnight. converted into a.fib/a.flutter, although difficult to see d/t lots of artifact. leads changed multiple times and ekg cable changed without much difference. q2h repositioning done overnight. VAMSI Jimenes notified of K 2.8 this morning. Received orders for K replacement via OG tube. See orders. Safety measures remain in place. Will endorse to juana GOLDBERG.
[2020-05-29] MEDS: PANTOPRAZOLE 40 MG/PACK PACK NG SCH (06:50)
[2020-05-29 08:08] LABS: ABG BASE EXCESS -1.8 mmol/L; ABG OXYGEN SATURATION 97.8 % (92.0-98.5); ABG PCO2 31.4 mmHg (35.0-45.0); ABG PH 7.452 (7.350-7.450); ABG PO2 100.3 mmHg (75.0-100.0); AaDO2 148.8 mmHg; COHb 0.8 % (0.5-1.5); PEEP,BG 5 cm H2O; SITE, ABG Right Brachial; VT, ABG 500 mL
[2020-05-29] MEDS: ENOXAPARIN SODIUM 30 MG/0.3 ML DISP.SYRIN SQ SCH (09:00)
[2020-05-29 09:23] LABS: BAND % (MANUAL) 1 % (0.0-5.0); LYMPHOCYTES % (MANUAL) 3 % (16-48); MONOCYTES % (MANUAL) 5 % (0-11.0); NEUTROPHILS % (MANUAL) 91 (42-76)
[2020-05-29] MEDS: MULTIVITAMINS,THERAGRAN 1 UDTAB TABLET PO SCH (09:39)
[2020-05-29] MEDS: FERROUS SULFATE (325 MG) 325 MG/TAB TABLET PO SCH (09:39)
[2020-05-29] MEDS: ASCORBIC ACID 500 MG TABLET PO SCH (09:39)
[2020-05-29] MEDS: POTASSIUM CL. PREMIX PERIPHER. 50 ML IV SCH ×4 (09:40→12:10)
[2020-05-29] MEDS: PROSOURCE / PROSTAT (PYXIS) 30 ML UDC PO SCH (09:52)
[2020-05-29] MEDS: DOXYCYCLINE 100 MG in IV D5W 100 ML IV SCH ×2 (09:55→21:30)
[2020-05-29] MEDS: Z GUARD REMEDY 2 OZ OINT TP PRN (09:56)
[2020-05-29] MEDS: Z GUARD REMEDY 2 OZ OINT TP SCH (09:56)
[2020-05-29] MEDS: IV PREMIX D5 1/2NS + KCL 1,000 ML IV SCH ×2 (12:00→22:57)
[2020-05-29] MEDS: DEXAMETHASONE SOD PHOSPHATE 10 MG/ML VIAL IV SCH (12:10)
[2020-05-29] MEDS: INSULIN REGULAR, HUMAN 100 UNIT/ML 3 ML VIAL SQ PRN ×2 (18:15→23:23)
--- NOTE | 2020-05-29 19:10 | NUR ---
RECEIVED IN REPORT THAT PATIENT HAS HAD BLACK, LOOSE STOOLS DURING THE DAY. ALSO A.FIB/A.FLUTTER WITH HR IN 100s-130s. BP 130/68 CURRENTLY AND SUZETTE IS BEING TITRATED DOWN. NOTIFIED VAMSI JONES OF ABOVE. CLAIRE HEREDIA WAS NOTIFIED WELL AND ORDERS RECEIVED TO CHANGE FROM SUZETTE TO VASOPRESSIN AND TO GIVE A ONE TIME DIGOXIN BOLUS OF 0.5 MG IV PUSH. SEE EMAR. PATIENT OFF PROPOFOL AND MAINTENANCE FLUIDS CHANGED DURING THE DAY. PATIENT WITHDRAWS TO PAIN, BUT NOT FOLLOWING COMMANDS. SAFETY MEASURES IN PLACE: BED IN LOW POSITION AND LOCKED, ALL ALARMS ON. PATIENT TOLERATING VENT SETTINGS. WILL CONTINUE TO MONITOR.
[2020-05-29] MEDS ORDERED: DIGOXIN INJ 0.5 MG/2 ML AMPUL IV ONE (20:00)
[2020-05-29] MEDS: DONEPEZIL 5 MG TABLET PO SCH (22:22)
[2020-05-30] VITALS (86 sets, daily range): BP systolic 72–144; BP diastolic 36–103
[2020-05-30 04:54] LABS: BASOPHILS % (AUTO) 0.2 % (0.0-2.0); EOSINOPHILS % (AUTO) 0.1 % (0.0-6.0); HEMATOCRIT 34 % (33-45); LYMPHOCYTES # (AUTO) 0.3 /CMM (0.8-4.8); LYMPHOCYTES % (AUTO) 3.9 % (20.0-44.0); MEAN CORPUSCULAR HGB CONC 32 g/dl (31.0-36.0); MEAN CORPUSCULAR VOLUME 92 fL (82-100); MONOCYTES # (AUTO) 0.6 /CMM (0.1-1.30); MONOCYTES % (AUTO) 8.5 % (2.0-12.0); NEUTROPHILS # (AUTO) 5.9 /CMM (1.8-8.9); NEUTROPHILS % (AUTO) 87.3 % (43.0-81.0); RED BLOOD CELL COUNT(AUTO) 3.71 MIL/uL (4.0-5.2); WHITE BLOOD COUNT (AUTO) 6.7 K/uL (4.3-11.0)
[2020-05-30 04:58] LABS: CALCIUM, SERUM 8.3 mg/dL (8.5-10.1); CREATININE 1.3 mg/dL (0.6-1.3); POTASSIUM 4.3 mmol/L (3.5-5.1)
[2020-05-30 05:02] LABS: PLATELET COUNT (AUTO) 28 /CMM (150-450)
[2020-05-30 05:14] LABS: C-REACTIVE PROTEIN 12.8 mg/dL (0.0-0.9)
[2020-05-30] MEDS: MEROPENEM 1 G in IV NS 0.9% 100 ML IV SCH ×2 (05:47→17:06)
--- NOTE | 2020-05-30 06:04 | NUR ---
patient intermittently in and out of controlled a.fib after digoxin bolus overnight. HR now 70s-low 100s. alexander titrated off and bp remains above goal sbp >90, map >65. vasopressin was not started. patient continues to withdraw from pain, not following commands. urine output decreased overnight. notified Loreta Jimenes NP of critical platelet count 28. informed that there appears to be melena in stool, but no obvious s/s of bleeding at this time. per GLUE SPREADER, continue to monitor and hold anticoagulants. safety measures remain in place. will endorse to juana GOLDBERG.
[2020-05-30] MEDS: BLOOD SUGAR DIAGNOSTIC 1 EACH STRIP IN SCH ×4 (06:44→23:55)
[2020-05-30] MEDS: INSULIN REGULAR, HUMAN 100 UNIT/ML 3 ML VIAL SQ PRN ×3 (06:48→18:43)
[2020-05-30] MEDS: PANTOPRAZOLE 40 MG/PACK PACK NG SCH ×2 (06:52→10:02)
[2020-05-30 07:53] LABS: ABG BASE EXCESS -6.5 mmol/L; ABG OXYGEN SATURATION 96.9 % (92.0-98.5); ABG PCO2 21.5 mmHg (35.0-45.0); ABG PH 7.472 (7.350-7.450); ABG PO2 89.9 mmHg (75.0-100.0); AaDO2 170.6 mmHg; COHb 0.3 % (0.5-1.5); MetHb 0.3 % (0.0-1.5); O2Hb 96.3 % (94.0-97.0); PEEP,BG 5 cm H2O; SITE, ABG Right Brachial; VENT MODE, BG SIMV PS=15; VT, ABG 500 mL
[2020-05-30] MEDS: Z GUARD REMEDY 2 OZ OINT TP SCH (09:00)
[2020-05-30] MEDS: ASCORBIC ACID 500 MG TABLET PO SCH (10:02)
[2020-05-30] MEDS: IV PREMIX D5 1/2NS + KCL 1,000 ML IV SCH ×2 (10:02→23:55)
[2020-05-30] MEDS: DEXAMETHASONE SOD PHOSPHATE 10 MG/ML VIAL IV SCH (10:03)
[2020-05-30] MEDS: PROSOURCE / PROSTAT (PYXIS) 30 ML UDC PO SCH (10:03)
[2020-05-30] MEDS: FERROUS SULFATE (325 MG) 325 MG/TAB TABLET PO SCH (10:03)
[2020-05-30] MEDS: MULTIVITAMINS,THERAGRAN 1 UDTAB TABLET PO SCH (10:03)
[2020-05-30 10:08] LABS: D-DIMER 15.88 mg/L(FEU (0.17-0.50)
[2020-05-30] MEDS: DOXYCYCLINE 100 MG in IV D5W 100 ML IV SCH ×2 (10:10→22:00)
[2020-05-30] MEDS ORDERED: DIGOXIN 0.25 MG TABLET PO SCH (15:30)
[2020-05-30] MEDS: MICAFUNGIN SODIUM 100 MG in IV NS 0.9% 100 ML IV SCH (16:36)
[2020-05-30] MEDS: Z GUARD REMEDY 2 OZ OINT TP PRN (17:08)
[2020-05-30] MEDS ORDERED: METOPROLOL TARTRATE 25 MG TABLET PO SCH ×2 (17:30→18:00)
[2020-05-30] MEDS: METOPROLOL TARTRATE 25 MG TABLET PO SCH (18:40)
[2020-05-30] MEDS: DONEPEZIL 5 MG TABLET PO SCH (22:01)
[2020-05-31] VITALS (51 sets, daily range): BP systolic 104–153; BP diastolic 50–92
[2020-05-31] MEDS: INSULIN REGULAR, HUMAN 100 UNIT/ML 3 ML VIAL SQ PRN ×2 (00:18→06:35)
--- NOTE | 2020-05-31 01:28 | NUR ---
RT NOTE PT RECEIVED INTUBATED VIA 7.5 ETT @ 23CM LIPLINE. ETT IS SECURE AND PATENT. [facility] VENT IS ON CHARTED SETTINGS. ALARMS ARE SET AND AUDIBLE. BMV @ HOB. NO RESP DISTRESS NOTED T/O SHIFT. Addendum: 05/31/20 at 0353 by KAIDEN TERRAZAS RT Amended: Links added.
[2020-05-31 04:36] LABS: BASOPHILS % (AUTO) 0.1 % (0.0-2.0); EOSINOPHILS % (AUTO) 0.1 % (0.0-6.0); HEMATOCRIT 34 % (33-45); HEMOGLOBIN 11.2 g/dL (11.5-14.8); LYMPHOCYTES # (AUTO) 0.5 /CMM (0.8-4.8); LYMPHOCYTES % (AUTO) 4.6 % (20.0-44.0); MEAN CORPUSCULAR HGB CONC 33 g/dl (31.0-36.0); MEAN CORPUSCULAR VOLUME 91 fL (82-100); MONOCYTES # (AUTO) 1.1 /CMM (0.1-1.30); MONOCYTES % (AUTO) 10.5 % (2.0-12.0); NEUTROPHILS # (AUTO) 8.7 /CMM (1.8-8.9); NEUTROPHILS % (AUTO) 84.7 % (43.0-81.0); RED BLOOD CELL COUNT(AUTO) 3.75 MIL/uL (4.0-5.2); WHITE BLOOD COUNT (AUTO) 10.2 K/uL (4.3-11.0)
[2020-05-31 04:48] LABS: PLATELET COUNT (AUTO) 34 /CMM (150-450)
[2020-05-31 04:54] LABS: CALCIUM, SERUM 8.5 mg/dL (8.5-10.1); CREATININE 1.1 mg/dL (0.6-1.3); POTASSIUM 4.1 mmol/L (3.5-5.1)
[2020-05-31] MEDS: MEROPENEM 1 G in IV NS 0.9% 100 ML IV SCH ×2 (05:34→17:08)
[2020-05-31] MEDS: BLOOD SUGAR DIAGNOSTIC 1 EACH STRIP IN SCH ×4 (06:30→23:59)
[2020-05-31 06:37] LABS: ABG BASE EXCESS -4.2 mmol/L; ABG PCO2 29.6 mmHg (35.0-45.0); ABG PH 7.422 (7.350-7.450); ABG PO2 75.5 mmHg (75.0-100.0); AaDO2 175.7 mmHg; COHb 1.5 % (0.5-1.5); MetHb 0.3 % (0.0-1.5); O2Hb 93.8 % (94.0-97.0); PEEP,BG 5 cm H2O; SITE, ABG Left Radial; VENT MODE, BG SIMV 4 450 PS12 40% +5; VT, ABG 450 mL
[2020-05-31 07:26] LABS: BAND % (MANUAL) 2 % (0.0-5.0); LYMPHOCYTES % (MANUAL) 6 % (16-48); MONOCYTES % (MANUAL) 6 % (0-11.0); NEUTROPHILS % (MANUAL) 86 (42-76)
[2020-05-31] MEDS: MULTIVITAMINS,THERAGRAN 1 UDTAB TABLET PO SCH (08:27)
[2020-05-31] MEDS: ASCORBIC ACID 500 MG TABLET PO SCH (08:27)
[2020-05-31] MEDS: FERROUS SULFATE (325 MG) 325 MG/TAB TABLET PO SCH (08:27)
[2020-05-31] MEDS: DEXAMETHASONE SOD PHOSPHATE 10 MG/ML VIAL IV SCH (08:27)
[2020-05-31] MEDS: DOXYCYCLINE 100 MG in IV D5W 100 ML IV SCH ×2 (08:27→20:35)
[2020-05-31] MEDS: Z GUARD REMEDY 2 OZ OINT TP SCH (08:27)
[2020-05-31] MEDS: METOPROLOL TARTRATE 25 MG TABLET PO SCH ×2 (08:29→21:09)
[2020-05-31] MEDS: PROSOURCE / PROSTAT (PYXIS) 30 ML UDC PO SCH (09:30)
[2020-05-31] MEDS: IV PREMIX D5 1/2NS + KCL 1,000 ML IV SCH (11:35)
[2020-05-31] MEDS: MICAFUNGIN SODIUM 100 MG in IV NS 0.9% 100 ML IV SCH (15:47)
[2020-05-31] MEDS: IV D5/0.45 NACL 1,000 ML IV PRN (17:18)
--- NOTE | 2020-05-31 19:00 | NUR ---
RN NOTE RECEIVED PATIENT IN BED, LETHARGIC,IN NO S/SX OF ACUTE DISTRESS AT THIS TIME. PATIENT INTUBATED WITH ET TUBE 7.08/24 ON THE LIP WITH SETTINGS PRESCRIBED. PATIENT AFIB CONTROLLED ON THE MONITOR, HR IS 88. OG TUBE CLAMPED, PLACEMENT CHECKED BY AUSCULTATION AND ASPIRATION, NO RESIDUAL NOTED. NOTED L SUBCLAVIAN 3 LUMEN CATH, PATENT AND FLUSHING, NO S/S OF INFECTION NOTED, WITH D5 1/2 NS + KCL 20 MEQ INFUING AT 100 ML/HR. MARTE CATHETER CONNECTED TO URINE BAG IN PLACE, DRAINING TO A CLEAR YELLOW OUTPUT. SAFETY MEASURES IMPLEMENTED. PATIENT BED ALARM IS ON. HEAD OF BED ELEVATED. BED IS LOCKED, IN LOWEST POSITION AND SIDE RAILS UP. ISOLATION PRECAUTIONS MAINTAINED. CALL LIGHT WITHIN REACH OF THE PATIENT. WILL CONTINUE TO MONITOR AND REASSESS FOR ANY CHANGES.
--- NOTE | 2020-05-31 19:44 | NUR ---
RT NOTE PT RECEIVED INTUBATED WITH 7.5 @ 22 CM. SX DONE, ET TUBE SECURED AND PATENT. VENT PLUGGED TO RED OUTLET. ALARMS ON AND AUDIBLE. NO DISTRESS NOTED. WILL MONITOR. Addendum: 05/31/20 at 1948 by DG FARFAN RT Amended: Links added.
[2020-05-31] MEDS: DONEPEZIL 5 MG TABLET PO SCH (21:10)
[2020-06-01] VITALS (53 sets, daily range): BP systolic 85–149; BP diastolic 48–74
[2020-06-01 04:22] LABS: BASOPHILS % (AUTO) 0.2 % (0.0-2.0); EOSINOPHILS % (AUTO) 0.1 % (0.0-6.0); HEMATOCRIT 34 % (33-45); HEMOGLOBIN 10.9 g/dL (11.5-14.8); LYMPHOCYTES # (AUTO) 0.5 /CMM (0.8-4.8); LYMPHOCYTES % (AUTO) 4.5 % (20.0-44.0); MEAN CORPUSCULAR HGB CONC 32 g/dl (31.0-36.0); MEAN CORPUSCULAR VOLUME 91 fL (82-100); MONOCYTES # (AUTO) 1.4 /CMM (0.1-1.30); MONOCYTES % (AUTO) 11.9 % (2.0-12.0); NEUTROPHILS # (AUTO) 9.7 /CMM (1.8-8.9); NEUTROPHILS % (AUTO) 83.3 % (43.0-81.0); RED BLOOD CELL COUNT(AUTO) 3.72 MIL/uL (4.0-5.2); WHITE BLOOD COUNT (AUTO) 11.6 K/uL (4.3-11.0)
[2020-06-01 04:42] LABS: CALCIUM, SERUM 8.4 mg/dL (8.5-10.1); POTASSIUM 3.9 mmol/L (3.5-5.1)
[2020-06-01 04:51] LABS: PLATELET COUNT (AUTO) 46 /CMM (150-450)
[2020-06-01 05:36] LABS: ABG BASE EXCESS -6.1 mmol/L; ABG OXYGEN SATURATION 99.1 % (92.0-98.5); ABG PCO2 26.9 mmHg (35.0-45.0); ABG PH 7.419 (7.350-7.450); ABG PO2 159.4 mmHg (75.0-100.0); AaDO2 94.9 mmHg; COHb 0.3 % (0.5-1.5); MetHb 0.1 % (0.0-1.5); O2Hb 98.7 % (94.0-97.0); PEEP,BG 5 cm H2O; SITE, ABG Right Brachial; VENT MODE, BG SIMV 4 450 40% +5 PS 12; VT, ABG 450 mL
[2020-06-01] MEDS: MEROPENEM 1 G in IV NS 0.9% 100 ML IV SCH ×2 (05:36→17:24)
[2020-06-01] MEDS: BLOOD SUGAR DIAGNOSTIC 1 EACH STRIP IN SCH ×3 (05:53→17:24)
[2020-06-01] MEDS: INSULIN REGULAR, HUMAN 100 UNIT/ML 3 ML VIAL SQ PRN ×4 (05:56→17:23)
[2020-06-01] MEDS: PANTOPRAZOLE 40 MG/PACK PACK NG SCH (06:03)
[2020-06-01] MEDS: IV D5/0.45 NACL 1,000 ML IV PRN ×2 (06:38→20:51)
--- NOTE | 2020-06-01 07:05 | NUR ---
RN NOTE RECEIVED PATIENT ON BED, INTUBATED LETHARGIC, DOES NOT FOLLOW COMMAND, TOLERAUNG SIMV MODE WELL, O2 AT WNL, EYES ARE OPEN, IN NO S/SX OF ACUTE DISTRESS AT THIS TIME, PATIENT AFIB CONTROLLED ON THE MONITOR, HR IS 80'S . OG TUBE CLAMPED, NOTED L SUBCLAVIAN 3 LUMEN CATH, PATENT AND FLUSHING, NO S/S OF INFECTION NOTED, WITH D5 1/2 NS AT 75CC/HR RUNNING , MARTE CATHETER INTACT AND DRAINING TO GRAVITY, WITH A CLEAR YELLOW OUTPUT. SAFETY MEASURES IMPLEMENTED. PATIENT BED ALARM IS ON. HEAD OF BED ELEVATED. BED IS LOCKED, IN LOWEST POSITION AND SIDE RAILS UP. ISOLATION PRECAUTIONS MAINTAINED. CALL LIGHT WITHIN REACH , WILL CONTINUE TO MONITOR .
[2020-06-01] MEDS: ASCORBIC ACID 500 MG TABLET PO SCH (08:13)
[2020-06-01] MEDS: FERROUS SULFATE (325 MG) 325 MG/TAB TABLET PO SCH (08:13)
[2020-06-01] MEDS: METOPROLOL TARTRATE 25 MG TABLET PO SCH ×2 (08:13→20:31)
[2020-06-01] MEDS: MULTIVITAMINS,THERAGRAN 1 UDTAB TABLET PO SCH (08:13)
[2020-06-01] MEDS: FLUCONAZOLE (100 MG) 100 MG TABLET PO SCH (08:13)
[2020-06-01] MEDS: PROSOURCE / PROSTAT (PYXIS) 30 ML UDC PO SCH (08:14)
[2020-06-01] MEDS: Z GUARD REMEDY 2 OZ OINT TP SCH (08:14)
[2020-06-01] MEDS: DEXAMETHASONE SOD PHOSPHATE 10 MG/ML VIAL IV SCH (08:14)
[2020-06-01] MEDS: DOXYCYCLINE 100 MG in IV D5W 100 ML IV SCH ×2 (08:50→20:31)
[2020-06-01] MEDS: VITAL AF 1.2 1,000 ML BOTTLE GT PRN (09:50)
--- NOTE | 2020-06-01 18:00 | NUR ---
RN NOTES PT REMANINS INTUBATED, ON SIMV MODE, TOLERAING WELL, VSS STABLE , NO SIGNIFICANT CHANGES NOTED ON THIS SHIFT , WILL ENDORSE TO GAME ENGINEER NURSE FOR CONTINUITY OF CARE .
[2020-06-01] MEDS: DONEPEZIL 5 MG TABLET PO SCH (22:08)
[2020-06-02] VITALS (25 sets, daily range): BP systolic 113–172; BP diastolic 52–110
[2020-06-02] MEDS: BLOOD SUGAR DIAGNOSTIC 1 EACH STRIP IN SCH ×5 (00:02→23:35)
[2020-06-02] MEDS: INSULIN REGULAR, HUMAN 100 UNIT/ML 3 ML VIAL SQ PRN ×5 (00:27→23:38)
[2020-06-02 05:20] LABS: BASOPHILS % (AUTO) 0.1 % (0.0-2.0); HEMATOCRIT 34 % (33-45); LYMPHOCYTES # (AUTO) 0.5 /CMM (0.8-4.8); LYMPHOCYTES % (AUTO) 3.3 % (20.0-44.0); MEAN CORPUSCULAR HGB CONC 33 g/dl (31.0-36.0); MEAN CORPUSCULAR VOLUME 90 fL (82-100); MONOCYTES # (AUTO) 0.9 /CMM (0.1-1.30); NEUTROPHILS % (AUTO) 90.6 % (43.0-81.0); PLATELET COUNT (AUTO) 57 /CMM (150-450); RED BLOOD CELL COUNT(AUTO) 3.74 MIL/uL (4.0-5.2); WHITE BLOOD COUNT (AUTO) 15.5 K/uL (4.3-11.0)
[2020-06-02 05:28] LABS: CALCIUM, SERUM 8.3 mg/dL (8.5-10.1); CREATININE 0.9 mg/dL (0.6-1.3); MAGNESIUM 1.4 mg/dL (1.8-2.4); PHOSPHORUS 2.7 mg/dL (2.5-4.9); POTASSIUM 3.8 mmol/L (3.5-5.1)
[2020-06-02] MEDS: IV D5/0.45 NACL 1,000 ML IV PRN ×2 (05:42→20:51)
[2020-06-02] MEDS: MEROPENEM 1 G in IV NS 0.9% 100 ML IV SCH ×2 (05:51→16:50)
[2020-06-02] MEDS: PANTOPRAZOLE 40 MG/PACK PACK NG SCH (06:35)
--- NOTE | 2020-06-02 06:49 | NUR ---
REPORTED MAGNESIUM 1.4 TO AYAKA JONES NP. RECEIVED TELEPHONE ORDER FOR MAG 1 MG IVPB X4 BAGS. ORDER READ BACK. Addendum: 06/02/20 at 0713 by DINA NAVAS RN CLARIFIED ORDER 1MG OR 1GM IVPB X 4 BAGS. AWAITING RESPONSE. WILL ENDORSE TO KEILY HANEY
[2020-06-02 08:14] LABS: ABG BASE EXCESS -5.5 mmol/L; ABG PCO2 27.3 mmHg (35.0-45.0); ABG PH 7.426 (7.350-7.450); ABG PO2 80.2 mmHg (75.0-100.0); AaDO2 101.6 mmHg; COHb 0.5 % (0.5-1.5); MetHb 0.3 % (0.0-1.5); O2Hb 95.2 % (94.0-97.0); SITE, ABG Left Radial; VENT MODE, BG SIMV 4 450 PS 10 30% +5
[2020-06-02] MEDS: Z GUARD REMEDY 2 OZ OINT TP SCH (09:00)
[2020-06-02] MEDS: DEXAMETHASONE SOD PHOSPHATE 10 MG/ML VIAL IV SCH (10:14)
[2020-06-02] MEDS: FERROUS SULFATE (325 MG) 325 MG/TAB TABLET PO SCH (10:15)
[2020-06-02] MEDS: METOPROLOL TARTRATE 25 MG TABLET PO SCH ×2 (10:15→21:06)
[2020-06-02] MEDS: MULTIVITAMINS,THERAGRAN 1 UDTAB TABLET PO SCH (10:15)
[2020-06-02] MEDS: ASCORBIC ACID 500 MG TABLET PO SCH (10:15)
[2020-06-02] MEDS: FLUCONAZOLE (100 MG) 100 MG TABLET PO SCH (10:15)
[2020-06-02] MEDS: PROSOURCE / PROSTAT (PYXIS) 30 ML UDC GT SCH (10:16)
[2020-06-02] MEDS: DOXYCYCLINE 100 MG in IV D5W 100 ML IV SCH ×2 (10:17→21:05)
[2020-06-02] MEDS: Magnesium 1GM/D5W 100ML PREMIX 100 ML IV SCH ×4 (13:21→16:48)
--- NOTE | 2020-06-02 19:14 | NUR ---
COPPER PLATE PRINTER OPENING NOTES: Rec't pt in bed, lethargic, reacts to stimuli. Pt intubated 7.5/23cm at the lip, on mechanical ventilation. Tolerating vent settings well. No resp distress noted at this time. A-fib controlled on tele monitor. OGT in place patent and verified w/ Vital AF infusing at 35ml/hr. Minimal residuals noted. Left subclavian TLC patent and flushed w/ D51/2NS infusing at 75ml/hr. Dressing c/d/i. Lopez catheter in place patent and draining urine via gravity. Safety measures in place. Will continue to monitor.
[2020-06-02] MEDS: DONEPEZIL 5 MG TABLET PO SCH (21:05)
[2020-06-03] VITALS (25 sets, daily range): BP systolic 83–156; BP diastolic 36–106
[2020-06-03] MEDS: VITAL AF 1.2 1,000 ML BOTTLE GT PRN (01:49)
[2020-06-03 04:29] LABS: BASOPHILS # (AUTO) 0.1 /CMM (0.0-0.2); BASOPHILS % (AUTO) 0.4 % (0.0-2.0); HEMATOCRIT 33 % (33-45); HEMOGLOBIN 10.8 g/dL (11.5-14.8); LYMPHOCYTES # (AUTO) 0.4 /CMM (0.8-4.8); LYMPHOCYTES % (AUTO) 1.9 % (20.0-44.0); MEAN CORPUSCULAR HGB CONC 33 g/dl (31.0-36.0); MEAN CORPUSCULAR VOLUME 89 fL (82-100); MONOCYTES # (AUTO) 0.6 /CMM (0.1-1.30); NEUTROPHILS # (AUTO) 17.4 /CMM (1.8-8.9); NEUTROPHILS % (AUTO) 94.7 % (43.0-81.0); PLATELET COUNT (AUTO) 76 /CMM (150-450); RED BLOOD CELL COUNT(AUTO) 3.64 MIL/uL (4.0-5.2); WHITE BLOOD COUNT (AUTO) 18.4 K/uL (4.3-11.0)
[2020-06-03 04:42] LABS: CALCIUM, SERUM 7.8 mg/dL (8.5-10.1); CREATININE 0.8 mg/dL (0.6-1.3); MAGNESIUM 2.4 mg/dL (1.8-2.4); POTASSIUM 3.5 mmol/L (3.5-5.1)
[2020-06-03] MEDS: MEROPENEM 1 G in IV NS 0.9% 100 ML IV SCH ×2 (05:22→18:08)
[2020-06-03] MEDS: BLOOD SUGAR DIAGNOSTIC 1 EACH STRIP IN SCH ×4 (05:22→23:19)
[2020-06-03] MEDS: INSULIN REGULAR, HUMAN 100 UNIT/ML 3 ML VIAL SQ PRN ×4 (05:24→23:20)
[2020-06-03] MEDS: PANTOPRAZOLE 40 MG/PACK PACK NG SCH ×2 (07:03→09:53)
--- NOTE | 2020-06-03 08:00 | NUR ---
RT PER DR JOHN ORDERS PATIENT PLACED ON T-PIECE WITH A VENTI SYSTEM SETUP 12L 40% TOLERATED WELL. PATIENT REMAINS ORALLY INTUBATED. AIRWAY SECURE AND PATENT. PATIENT AWAKE, AND INTERACTIVE. WILL CONT TO MONITOR CLOSELY. Addendum: 06/03/20 at 0832 by EMY GRANT RT Amended: Links added.
[2020-06-03 08:57] LABS: ABG BASE EXCESS -5.5 mmol/L; ABG PCO2 22.2 mmHg (35.0-45.0); ABG PH 7.483 (7.350-7.450); AaDO2 185.7 mmHg; COHb 0.3 % (0.5-1.5); MetHb 0.3 % (0.0-1.5); O2Hb 94.4 % (94.0-97.0); SITE, ABG Right Femoral; VENT MODE, BG VENTI 40% T PIECE
[2020-06-03] MEDS: METOPROLOL TARTRATE 25 MG TABLET PO SCH ×2 (09:53→20:12)
[2020-06-03] MEDS: FERROUS SULFATE (325 MG) 325 MG/TAB TABLET PO SCH (09:53)
[2020-06-03] MEDS: MULTIVITAMINS,THERAGRAN 1 UDTAB TABLET PO SCH (09:53)
[2020-06-03] MEDS: ASCORBIC ACID 500 MG TABLET PO SCH (09:53)
[2020-06-03] MEDS: FLUCONAZOLE (100 MG) 100 MG TABLET PO SCH (09:53)
[2020-06-03] MEDS: PROSOURCE / PROSTAT (PYXIS) 30 ML UDC GT SCH (09:54)
[2020-06-03] MEDS: DEXAMETHASONE SOD PHOSPHATE 10 MG/ML VIAL IV SCH (09:55)
[2020-06-03] MEDS: DOXYCYCLINE 100 MG in IV D5W 100 ML IV SCH ×2 (09:55→20:11)
[2020-06-03] MEDS: Z GUARD REMEDY 2 OZ OINT TP SCH (09:56)
[2020-06-03] MEDS: IV NS 0.9% 1,000 ML IV PRN (10:00)
--- NOTE | 2020-06-03 19:15 | NUR ---
RECEIVED PT ON BED AWAKE, LETHARGIC , NOT FOLLOWING ANY COMMANDS ON ETT TUBE CONNECTED TO T-PIECE 12L 40% SPO2 94% NO SIGN AND SYMPTOMS OF DISTRESS, TELE MONITOR READS AFIB UNCONTROLLED 70-90'S HR, HAVE OGTUBE PLACEMNET CHECKED, RESIDUAL 20ML WITH ONGOING VITAL @ 35ML/HR, HAVE MARTE CATHETER DRAINING YELLOW URINE VIA GRAVITY, BED ON LOWEST POSITION AND LOCKED SIDE RAILS UP X2 CALL LIGHT WITHIN REACH WILL CONT TO MONITOR
[2020-06-03] MEDS ORDERED: Z GUARD REMEDY 4 OZ OINT TP ONE (20:34)
[2020-06-03] MEDS: DONEPEZIL 5 MG TABLET PO SCH (21:30)
[2020-06-04] VITALS (64 sets, daily range): BP systolic 55–150; BP diastolic 21–101
[2020-06-04] MEDS ORDERED: MORPHINE SULFATE INJ 2 MG/ML DISP.SYRIN IVP PRN (02:00)
--- NOTE | 2020-06-04 02:00 | NUR ---
PT DESATURATE TO LOW 80'S SUCTIONING WAS DONE,NOTICE PT ON AGONAL BREATHING, RT MADE AWARE INCREASE FIO2 TO 50%,BUT STILL SHE SATING ONL;Y @ THE 87-88% CALLED DR DELGADO VALENCIA AND INFORMED THE SITUATION HE MADE AN ORDER FOR MORPHINE 1MG IVP Q4H FOR PAIN AND SOB NOTED AND CARRIED OUT
[2020-06-04] MEDS: PROPOFOL 100 ML IV PRN ×3 (02:11→16:05)
--- NOTE | 2020-06-04 02:19 | NUR ---
PT STILL ON AGONAL BREATHING, RT ON BED SIDE PUT BACK HER TO MECHANICAL VENTILATOR WITH THE SETTING SIMV RATE:4, TV:450 PRESSURE SUPPORT : 10 PEEP 5 FIO2 80%, CHARGE NURSE MADE AWARE, WILL CONT TO MONITOR THE PT
--- NOTE | 2020-06-04 03:20 | NUR ---
PT SATURATION ON 97% STILL ON VENT SETTING SIMV RATE 4 TV 450 PRESSURE SUPPORT 10 PEEP 5 FIO2 80% NOT ON AGONAL BREATHING ANYMORE, MADE AWARE WILL CONT TO MONITOR THE PT
[2020-06-04] MEDS: IV NS 0.9% 1,000 ML IV PRN (04:30)
[2020-06-04 04:46] LABS: BASOPHILS # (AUTO) 0.4 /CMM (0.0-0.2); BASOPHILS % (AUTO) 1.2 % (0.0-2.0); EOSINOPHILS % (AUTO) 0.1 % (0.0-6.0); HEMATOCRIT 30 % (33-45); HEMOGLOBIN 9.7 g/dL (11.5-14.8); LYMPHOCYTES # (AUTO) 0.3 /CMM (0.8-4.8); LYMPHOCYTES % (AUTO) 1.1 % (20.0-44.0); MEAN CORPUSCULAR HGB CONC 33 g/dl (31.0-36.0); MEAN CORPUSCULAR VOLUME 90 fL (82-100); MONOCYTES # (AUTO) 0.5 /CMM (0.1-1.30); MONOCYTES % (AUTO) 1.6 % (2.0-12.0); NEUTROPHILS # (AUTO) 27.7 /CMM (1.8-8.9); PLATELET COUNT (AUTO) 97 /CMM (150-450); WHITE BLOOD COUNT (AUTO) 28.9 K/uL (4.3-11.0)
[2020-06-04 05:08] LABS: CALCIUM, SERUM 7.9 mg/dL (8.5-10.1); CREATININE 0.7 mg/dL (0.6-1.3); MAGNESIUM 1.9 mg/dL (1.8-2.4); PHOSPHORUS 3.2 mg/dL (2.5-4.9); POTASSIUM 3.8 mmol/L (3.5-5.1)
[2020-06-04] MEDS: MEROPENEM 1 G in IV NS 0.9% 100 ML IV SCH ×2 (05:10→18:27)
[2020-06-04] MEDS: VITAL AF 1.2 1,000 ML BOTTLE GT PRN (05:14)
--- NOTE | 2020-06-04 05:29 | NUR ---
PT SATURATION ON 97-98% NO SIGN AND SYMPTOMS OF RESPIRATORY DISTRESS, RESPIRATION EVEN AND UNLABORED STILL ON ETT/VENT SETTING ORDERED FIO2 LOWER DOWN TO 60% FROM 80% BY RT, WILL CONT TO MONITOR
[2020-06-04] MEDS: BLOOD SUGAR DIAGNOSTIC 1 EACH STRIP IN SCH ×3 (05:33→19:04)
[2020-06-04] MEDS: INSULIN REGULAR, HUMAN 100 UNIT/ML 3 ML VIAL SQ PRN (05:34)
[2020-06-04] MEDS: Z GUARD REMEDY 2 OZ OINT TP PRN (05:34)
[2020-06-04 05:50] LABS: BAND % (MANUAL) 2 % (0.0-5.0); MONOCYTES % (MANUAL) 2 % (0-11.0); NEUTROPHILS % (MANUAL) 96 (42-76)
[2020-06-04 07:53] LABS: ABG BASE EXCESS -4.9 mmol/L; ABG OXYGEN SATURATION 93.1 % (92.0-98.5); ABG PCO2 27.7 mmHg (35.0-45.0); ABG PH 7.437 (7.350-7.450); ABG PO2 66.2 mmHg (75.0-100.0); AaDO2 331.1 mmHg; COHb 0.1 % (0.5-1.5); MetHb 0.3 % (0.0-1.5); O2Hb 92.7 % (94.0-97.0); SITE, ABG Right Radial; VENT MODE, BG SIMV 4 450 +5 60% PS10
[2020-06-04] MEDS: MULTIVITAMINS,THERAGRAN 1 UDTAB TABLET PO SCH (09:00)
[2020-06-04] MEDS: METOPROLOL TARTRATE 25 MG TABLET PO SCH ×2 (09:00→21:00)
[2020-06-04] MEDS: Z GUARD REMEDY 2 OZ OINT TP SCH (09:00)
[2020-06-04] MEDS: FERROUS SULFATE (325 MG) 325 MG/TAB TABLET PO SCH (09:00)
[2020-06-04] MEDS: ASCORBIC ACID 500 MG TABLET PO SCH (09:00)
[2020-06-04] MEDS: FLUCONAZOLE (100 MG) 100 MG TABLET PO SCH (09:00)
[2020-06-04] MEDS: PROSOURCE / PROSTAT (PYXIS) 30 ML UDC GT SCH (09:00)
[2020-06-04] MEDS: PHENYLEPHRINE 50 MG in IV NS 0.9% 245 ML IV PRN (11:00)
[2020-06-04] MEDS: DOXYCYCLINE 100 MG in IV D5W 100 ML IV SCH ×2 (11:23→23:09)
[2020-06-04] MEDS: DEXAMETHASONE SOD PHOSPHATE 10 MG/ML VIAL IV SCH (11:26)
--- NOTE | 2020-06-04 20:00 | NUR ---
ng TUBE REINSERTED PER MD DR ALVARENGA, CXR CONFIRMED, TUBE FEEDS RESTARTED @ 1800. PATIENT RESTARTED ON PROPOFOL AND NEOSYNERPRINE PER MD, PALCED BACK ON AC MODE ON VENT FOR RESP DISTRESS.
[2020-06-04] MEDS: NOREPINEPHRINE 32 MG in IV NS 0.9% 218 ML IV PRN (21:15)
[2020-06-04] MEDS ORDERED: VASOPRESSIN INJ 20 UNIT/ML VIAL ONE ×2 (22:13→22:45)
[2020-06-04] MEDS: VASOPRESSIN INJ 40 UNIT in IV NS 0.9% 38 ML IV PRN ×2 (22:41→22:51)
[2020-06-04] MEDS: DONEPEZIL 5 MG TABLET PO SCH (23:09)
[2020-06-05] VITALS (56 sets, daily range): BP systolic 35–122; BP diastolic 17–85
[2020-06-05] MEDS: PHENYLEPHRINE 50 MG in IV NS 0.9% 245 ML IV PRN (03:37)
[2020-06-05 04:54] LABS: BASOPHILS # (AUTO) 0.1 /CMM (0.0-0.2); BASOPHILS % (AUTO) 0.2 % (0.0-2.0); HEMATOCRIT 35 % (33-45); HEMOGLOBIN 10.6 g/dL (11.5-14.8); LYMPHOCYTES # (AUTO) 0.2 /CMM (0.8-4.8); LYMPHOCYTES % (AUTO) 0.6 % (20.0-44.0); MEAN CORPUSCULAR HGB CONC 31 g/dl (31.0-36.0); MEAN CORPUSCULAR VOLUME 96 fL (82-100); MONOCYTES # (AUTO) 1.3 /CMM (0.1-1.30); MONOCYTES % (AUTO) 3.9 % (2.0-12.0); NEUTROPHILS % (AUTO) 95.3 % (43.0-81.0); PLATELET COUNT (AUTO) 142 /CMM (150-450); RED BLOOD CELL COUNT(AUTO) 3.61 MIL/uL (4.0-5.2)
[2020-06-05 05:07] LABS: WHITE BLOOD COUNT (AUTO) 33.6 K/uL (4.3-11.0)
[2020-06-05 05:09] LABS: CALCIUM, SERUM 8.2 mg/dL (8.5-10.1); CREATININE 1.1 mg/dL (0.6-1.3); POTASSIUM 4.8 mmol/L (3.5-5.1)
[2020-06-05 05:35] LABS: BAND % (MANUAL) 2 % (0.0-5.0); LYMPHOCYTES % (MANUAL) 1 % (16-48); MONOCYTES % (MANUAL) 5 % (0-11.0); NEUTROPHILS % (MANUAL) 92 (42-76)
--- NOTE | 2020-06-05 06:07 | NUR ---
PM SHIFT RECAP- 1930 PT SEVERELY HYPOTENSIVE, SEE VS, PT ON SUZETTE, CALLED PHARMACY TO CONSITUTE LEVO DRIP 2149 DR VALENCIA NOTIFIED THAT PT HR WENT FROM 70'S TO 140'S POST LEVO ADMINISTRATION. ASKED IF WANTED TO D/C LEVOPHED AND START VASO, MD AGREED 2154 CALLED [employer] SALESPERSON FOR VASOPRESSIN GTT REQUEST, CHARGE NURSE OFF UNIT.STATED HE WOULD CALL PERIPATOLOGIST PHARMACIST 2022 UNABLE TO OBTAIN PULSE OXIMITRY READING, WEAK PULSES NOTED, TROUBLESHOOTING,BEAR HUGGER APPLIED SECONDAY TO HYPOTHERMIA AND COLD HANDS AND EARS POSSIBLY CONTRIBUTING TO LACK OF SIGNAL 2239 VASO STARTED, COMPOUNDED BY CHARGE NURSE AND SECOND NURSE WITNESS ANGELA RN 2250 RT TEAM AT TROUBLESHOOTING PULSE OXIMITRY 0000 PT CONINUES TO DEMONSTRATE AGONAL BREATHING AND HAS BEEN NOT RESPONSIVE TO BLINK, GAG, PAIN, COUGH REFLEXES 514 LEVOPHED RESTARTED PT IS SEVERELY HYPOTENSIVE DESPITE MAX DOSES OF SUZETTE AND VASO. DR VALENCIA PAGED 0530 NOTIFIED OFFERING TO ALLOW VISIT FOR END OF LIFE, APPROVED BY [facility] NURSE AND [employer] SALESPERSON BUT STATED IF SHE IS NOT AWAKE AND ALERT THAT HE WOUDL RATHER NOT RISK COMING TO HOSPITAL, REQUESTED COMFORT CARE AND WITHDRAWAL OF LIFE SUPPORT. ADVISED HIM A PHYSICIAN WOULD HAVE TO SPEAK TO HIM TO FACILITATE MOVING FORWARD WITH W/D OF LIFE SUPPORT AND TO EXPECT A CALL THIS MORNING OR AFTERNOON, THAT WE WOULD KEEP HIM POSTED ON PT CONDITION 0600 DR VALENCIA CALLED BACK, UPDATED ON PT CONDITION, GTTS, VS AND CONVERSATION WITH , STATED TO WAIT FOR AM MD TO ARRIVE TO FACILITATE CHANGE IN CURRENT ORDERS 0600
[2020-06-05] MEDS: MEROPENEM 1 G in IV NS 0.9% 100 ML IV SCH (06:23)
[2020-06-05] MEDS: BLOOD SUGAR DIAGNOSTIC 1 EACH STRIP IN SCH ×2 (06:23)
[2020-06-05] MEDS: INSULIN REGULAR, HUMAN 100 UNIT/ML 3 ML VIAL SQ PRN (06:28)
[2020-06-05 08:11] LABS: ABG BASE EXCESS -13.7 mmol/L; ABG OXYGEN SATURATION 98.7 % (92.0-98.5); ABG PH 7.214 (7.350-7.450); COHb 0.3 % (0.5-1.5); O2Hb 98.4 % (94.0-97.0); PEEP,BG 5 cm H2O; SITE, ABG Right Brachial; VT, ABG 450 mL
[2020-06-05] MEDS ORDERED: LORAZEPAM INJ 2 MG/ML VIAL IV PRN (10:30)
[2020-06-05] MEDS ORDERED: MORPHINE SULFATE PF DRIP 250 MG in IV D5W 240 ML IV PRN (10:30)
[2020-06-05] MEDS ORDERED: DC PROPOFOL WHEN EXTUBATED XX PRN (10:30)
[2020-06-05] MEDS ORDERED: MORPHINE SULFATE INJ 2 MG/ML DISP.SYRIN IV ONE (11:00)
--- NOTE | 2020-06-05 14:50 | NUR ---
PT IS COMFORT MEASURES PER MD ORDERS. NO HEART TONES NOTED, NO RESPIRATIONS, NO PULSES. SHODDY MILL WORKER IS ASYSTOLE. NO SIGNS OF LIFE VERIFIED BY DARNELL GOLDBERG AND ARIANA GOLDBERG.
--- NOTE | 2020-06-05 17:24 | NUR ---
patient put on comfort measures in am per 's request. started on morphine drip and extubated an hour later per MD instructions (see MAR). patient went asystole at 1450. Time of 1450. and one legacy notified. MD notified. body picked up by pierce.
== END 2020-06-05 14:50 | disposition expired | DRG 870 ==
LOC: ER 08:44 → ICU 11:30
PROVIDERS: ADMIT Nurse Practitioner Family; ATTEND Internal Medicine
PROC: 5A1955Z Respiratory Ventilation, Greater than 96 Consecutive Hours (ICD-10-PCS; principal; 2020-05-25)
PROC: 0BH17EZ Insertion of Endotracheal Airway into Trachea, Via Natural or Artificial Opening (ICD-10-PCS; 2020-05-25)
DX: A41.89 Other specified sepsis (principal); G92 Toxic encephalopathy; R65.21 Severe sepsis with septic shock; J96.01 Acute respiratory failure with hypoxia; U07.1 COVID-19; N17.0 Acute kidney failure with tubular necrosis; J12.82 Pneumonia due to coronavirus disease 2019; Z99.11 Dependence on respirator [ventilator] status; J44.0 Chronic obstructive pulmonary disease with (acute) lower respiratory infection; J44.1 Chronic obstructive pulmonary disease with (acute) exacerbation; E87.4 Mixed disorder of acid-base balance; E87.0 Hyperosmolality and hypernatremia; Z51.5 Encounter for palliative care; Z66 Do not resuscitate; F02.80 Dementia in other diseases classified elsewhere, unspecified severity, without behavioral disturbance, psychotic disturbance, mood disturbance, and anxiety; E11.65 Type 2 diabetes mellitus with hyperglycemia; G30.9 Alzheimer's disease, unspecified; D69.6 Thrombocytopenia, unspecified; Z79.899 Other long term (current) drug therapy; F20.9 Schizophrenia, unspecified; F41.9 Anxiety disorder, unspecified; Z96.642 Presence of left artificial hip joint; E87.6 Hypokalemia; M89.9 Disorder of bone, unspecified; Y95 Nosocomial condition; Z93.0 Tracheostomy status; Z93.1 Gastrostomy status; R13.10 Dysphagia, unspecified; Z79.4 Long term (current) use of insulin; I48.0 Paroxysmal atrial fibrillation
CPT/HCPCS: 31720; 36415; 36600; 71045-TC; 80048-TC; 80053-TC; 80076-TC; 80162-TC; 80202-TC; 81001; 82533; 82803-TC; 82962-TC; 83605-TC; 83615-TC; 83735-TC; 84100-TC; 84478-TC; 84484-TC; 85025-TC; 85396; 85730-TC; 86140-TC; 87040-TC; 87070-TC; 87081-TC; 87086-TC; 94002-TC; 94003-TC; 94640-TC; 94760-TC; 94762-TC; 94799-TC; C1751; G0378; J0330; J1100; J1160; J1650; J1720; J1815; J1940; J2060; J2185; J2248; J2270; J2274; J2370; J2543; J3370; J3475; J3480; J3490; J7030; J7042; J7050; J7060; J7070; U0003